=== PATIENT | female | born 1970 | race Caucasian/White ===

== ENCOUNTER 2025-03-02 18:10 | Emergency (ER) | payer OTHER, SELFPAY ==
[2025-03-02 18:16] VITALS: BP 125/81; PULSE 80; TEMP 36.4; O2SAT 97; BMI 32.1
[2025-03-02 18:38] VITALS: BP 128/88; PULSE 81; TEMP 36.7; O2SAT 97; BMI 32.1
--- NOTE | 2025-03-02 19:19 | ED.GENADUL1 ---
HPI HPI - General Adult General Chief complaint: Headache Stated complaint: MIGRAINE Time Seen by Provider: 03/02/25 18:18 Source: patient Mode of arrival: walk-in Limitations: no limitations History of Present Illness HPI narrative: 54 year old female presents to the ED for a headache, N/V. Onset was yesterday. States the pain is generalized, but worse on the left side. This is a typical migraine for her. She took her home medication without relief. Denies fever, chills, dizziness, vision changes. Denies neck pain/stiffness. States her daughter dropped her off today and will be picking her up. Related Data Allergies Allergy/AdvReac Type Severity Reaction Status Date / Time codeine Allergy Severe blacked out Verified 03/02/25 18:38 Opioid HPI Opioid Management Most Recent Opioid Data: Last Pain Scale 7 Today, 19:39 Last MAR Pain Assessment Today, 19:39 Review of Systems ROS Constitutional Denies: fever or chills Ears, nose, mouth, and throat Denies: neck pain Cardiovascular Denies: chest pain Respiratory Denies: shortness of breath Gastrointestinal Reports: nausea and vomiting; Denies: abdominal pain Musculoskeletal Denies: back pain or neck pain Integumentary/Breast Denies: rash Neurological Reports: headache; Denies: numbness in extremities, weakness in extremities or dizziness PFSH PFSH Social History Little interest or pleasure in doing things: not at all Feeling down, depressed, or hopeless: not at all Exam Constitutional Vital Signs, click to edit/add: Last Vital Signs Temp 98.1 F 03/02/25 18:38 Pulse 81 03/02/25 18:38 Resp 18 03/02/25 18:38 BP 128/88 03/02/25 18:38 Pulse Ox 97 03/02/25 18:38 O2 Del Method Room Air 03/02/25 18:38 Common normals: no apparent distress and oriented x3 General appearance: cooperative HENMT Common normals: external ears normal and moist oral mucous membranes Eye Common normals: PERRL, EOMs intact bilaterally, conjunctivae normal and no scleral icterus Neck & C-Spine Common normals: supple and no meningeal signs Chest Chest: symmetrical chest wall rise Respiratory Common normals: normal respiratory effort Effort & inspection: able to speak in complete sentences and symmetric chest movement Cardio Common normals: regular rate Neuro Common normals: oriented x3, CN's II-XII intact bilaterally, moves all extremities and no focal motor deficits Sensorium/orientation: awake and alert Speech: speech normal Gait (neuro): normal gait Course Vital Signs Vital signs: Vital Signs Temperature 97.5 F L 03/02/25 18:16 Pulse Rate 80 03/02/25 18:16 Respiratory Rate 16 03/02/25 18:16 Blood Pressure 125/81 03/02/25 18:16 Pulse Oximetry 97 03/02/25 18:16 Oxygen Delivery Method Room Air 03/02/25 18:16 Temperature 98.1 F 03/02/25 18:38 Pulse Rate 81 03/02/25 18:38 Respiratory Rate 18 03/02/25 18:38 Blood Pressure 128/88 03/02/25 18:38 Pulse Oximetry 97 03/02/25 18:38 Oxygen Delivery Method Room Air 03/02/25 18:38 Medical Decision Making MDM Narrative Medical decision making narrative: She was given IV fluid, Reglan, Decadron, Benadryl, and Toradol with improvement. She reported her pain 2/10 prior to discharge. Follow up with pcp for a recheck, further evaluation and treatment. She was discharged to family for a ride home. Medical Records Medical records reviewed: Yes I reviewed the patient's medical records Discharge Plan Discharge Chief Complaint: Headache Clinical Impression: Headache Patient Disposition: Home, Self-Care Time of Disposition Decision: 20:26 Condition: Good Mode of Transportation: Private Vehicle Print Language: Greenlandic Instructions: Acute Headache (ED) Additional Instructions: Return to the ED for worsening symptoms. Referrals: Physician,Non-Staff, MD [Primary Care Provider] - 1 week
[2025-03-02] MEDS: DIPHENHYDRAMINE HCL 50 MG/ML VIAL 25 MG IVP (19:38)
[2025-03-02] MEDS: DEXAMETHASONE SOD PHOS 10 MG/ML VIAL IV (19:38)
[2025-03-02] MEDS: 0.9 % SODIUM CHLORIDE 1,000 ML 999 ML IV (19:38)
[2025-03-02] MEDS: METOCLOPRAMIDE HCL 10 MG/2 ML VIAL IVP (19:39)
[2025-03-02] MEDS: KETOROLAC TROMETHAMINE 30 MG/ML VIAL IVP (19:39)
[2025-03-02 20:50] VITALS: BP 123/63; PULSE 84; O2SAT 98
== END 2025-03-02 20:53 | disposition home or self-care (01) ==
PROVIDERS: Emergency Provider Emergency Medicine
DX: R51.9 Headache, unspecified (principal); R11.2 Nausea with vomiting, unspecified
CPT/HCPCS: 96361; 96374; 96375; 99284; J1100; J1200; J1885; J2765

== ENCOUNTER 2025-03-04 11:23 | Emergency (ER) | payer OTHER, SELFPAY ==
[2025-03-04 11:27] VITALS: BP 153/84; PULSE 87; TEMP 36.6; O2SAT 95; BMI 32.1
--- OUTSIDE RECORDS SUMMARY | 2025-03-04 11:30 | XMS_ITS | Encounter Summary ---
Author Organization [employer] Address [id number] [address] [place] [address] Care Team Providers Care Sustainability Specialist Name Role Phone Dmitriy Shannon MD Primary Care Provider [phone] Encounter Details Date Type Department Care Team (Late st Contact Info) Description 10/20/2024 [facility]phone [facility] [address] [place] [address] Vita Laughlin CMA Social History Tobacco Use Types Packs/Day Years Used Date Smoking Tobacco: Some Days Cigarettes Smokeless Tobacco: Never Alcohol Use Standard Drinks/Week Comments Yes 0 (1 standard drink = 0.6 oz pur e alcohol) occassionally Social Connection and Isolation Panel [NHANES] A nswer Date Recorded In a typical week, how many times do you talk on the phone with family, friends, or neighbors? Once a week 03/21/2021 How often do you get together with friends or re latives? Once a week 03/21/2021 How often do you attend jew or jehovah's witness serv ices? Never 03/21/2021 Do you belong to any clubs o r organizations such as jew groups, unions, fraternal or athletic groups, or school groups? No 03/21/2021 How often do you attend meet ings of the clubs or organizations you belong to? Never 03/21/2021 Are you , , di vorced, , never , or living with a partner? 03/21/2021 AUDIT-C Answer Date Recorded Q1: How often do you have a drink containing alc ohol? Monthly or less 03/21/2021 Q2: How many drinks containi ng alcohol do you have on a typical day when you are drinking? 3 or 4 03/21/2021 Q3: How often do you have si x or more drinks on one occasion? Less than monthly 03/21/2021 Overall Financial Resource Strain (CARDIA) Answe r Date Recorded How hard is it for you to pa y for the very basics like food, housing, medical care, and heating? Not hard at all 03/21/2021 PHQ-2 Answer Date Recorded Total Score 0 05/10/2024 [facility] of Occupat ional Health - Occupational Stress Questionnaire Answer Date Recorded Do you feel stress - tense, restless, nervous, or anxious, or unable to sleep at night because your mind is troubled all the time - these days? Very much 03/21/2021 Exercise Vital Sign Answer Date Recorde d On average, how many days pe r week do you engage in moderate to strenuous exercise (like a brisk walk)? 3 days 03/21/2021 On average, how many minutes do you engage in exercise at this level? 30 min 03/21/2021 PRAPARE - Transportation Answer Date Re corded In the past 12 months, has l ack of transportation kept you from medical appointments or from getting medications? No 03/2021 In the past 12 months, has l ack of transportation kept you from meetings, work, or from getting things needed for daily living? No 03/21/2021 Childcare Answer Date Recorded Do problems getting child ca re make it difficult for you to work or study? No 03/21/2021 Employment Answer Date Recorded Do you need help finding a [facility] career center and/or a training program? No 03/21/2021 Hunger Screening Answer Date Recorded Within the past 12 months we worried whether our food would run out before we got money to buy more. Never True 05/10/2024 Within the past 12 months th e food we bought just didn't last and we didn't have money to get more. Never True 05/10/2024 Purpose - Life Answer Date Recorded I have a purpose and direction in my life. Agree 03/21/2021 Education Answer Date Recorded What is the highest level of school you have completed or the highest degree you have received? Associate degree: occupational, technical, or vocational program 03/21/2021 Comments No Sex and Gender Information Value Date Recorded Sex Assigned at Not on file Legal Sex Female 12:01 PM EDT Gender Identity Not on file Sexual Orientation Not on file documented as of this encounter Miscellaneous Notes * Telephone Encounter - Vita Laughlin CMA - 10/20/2024 9:22 AM EDT Patient on xanax for anxiety/ PTSD, would like referral to behavioral health. documented in this encounter Plan of Treatment Upcoming Encounters Date Type Department Care Team (Late st Contact Info) Description 05/18/2025 4:00 PM EST Office Visit [facility] [address] [place] [phone] Dmitriy Shannon MD [address] [place] [address] documented as of this encounter Visit Diagnoses Not on filedocumented in this encounter Additional Health Concerns Assessment Noted Time PHQ-9 Depression Total Score: 0 05/10/20 24 7:00 AM EDT A Body Mass Index follow-up plan has been documented for the patient 05/16/2019 12:28 PM EST documented as of this encounter Care Teams Sustainability Specialist Relationship Specialty Start Date End Date Dmitriy Shannon MD [address] [place] [address] PCP - General Internal Medicine 11/08/24 documented as of this encounter
--- OUTSIDE RECORDS SUMMARY | 2025-03-04 11:30 | XMS_ITS | Encounter Summary ---
Author Organization [employer] Address [facility] [id number] [address] [place] [address] Care Team Providers Care Field Assembly Supervisor Name Role Phone Dmitriy Shannon MD Primary Care Provider [phone] Reason for Visit * Reason Comments Med Refill Encounter Details Date Type Department Care Team (Late Contact Info) Description 06/07/2019 Refill [facility] [address] [place] [address] Sandee Garcia, [employer] FORMER [address] [place] [phone] Social History Tobacco Use Types Packs/Day Years Used Date Smoking Tobacco: Every Day Smokeless Tobacco: Never Alcohol Use Standard Drinks/Week Comments Yes 0 (1 standard drink = 0.6 oz pur e alcohol) PHQ-2 Answer Date Recorded PHQ-2 Score 6 06/01/2019 Childcare Answer Date Recorded Childcare Unknown 12/22/2018 Employment Answer Date Recorded Employment Unknown 12/22/2018 Comments No Sex and Gender Information Value Date Recorded Sex Assigned at Not on file Legal Sex Female 12:01 PM EDT Gender Identity Not on file Sexual Orientation Not on file documented as of this encounter Plan of Treatment Upcoming Encounters Date Type Department Care Team ([facility] Contact Info) Description 05/18/2025 4:00 PM EST Office Visit [facility] [address] [place] [address] Dmitriy Shannon MD [address] [place] [address] documented as of this encounter Visit Diagnoses Not on filedocumented in this encounter Additional Health Concerns Infection Onset Date Last Indicated Resolved Time COVID-19 Rule-Out 07/03/2020 06/22/2020 07/03/2020 12:53 PM EST Assessment Noted Time PHQ-9 Depression Total Score: 6 06/01/20 19 10:00 AM EST A Body Mass Index follow-up plan has been documented for the patient 05/16/2019 12:28 PM EST documented as of this encounter Care Teams Field Assembly Supervisor Relationship Specialty Start Date End Date Dmitriy Shannon MD [address] [place] [address] [phone] PCP - General Internal Medicine 11/08/24 documented as of this encounter
--- OUTSIDE RECORDS SUMMARY | 2025-03-04 11:30 | XMS_ITS | Encounter Summary ---
Author Organization [employer] [facility] tem Address [id number] [address] [place] [address] Care Team Providers Care Office Aide Name Role Phone Dmitriy Shannon MD Primary Care Provider [phone] Reason for Visit * Reason Onset Date Comments Fall 03/03/2025 Encounter Details Date Type Department Care Team (Late st Contact Info) Description 03/03/2025 Nurse Triage [facility] [address] [place] [phone] Claudia Boggs, KASANDRA Social History Tobacco Use Types Packs/Day Years Used Date Smoking Tobacco: Former Cigarettes Smokeless Tobacco: Never Alcohol Use Standard [...] week 03/21/2021 How often do you attend restorationist or judaism serv ices? Never 03/21/2021 Do you belong to any clubs o r organizations such as restorationist groups, unions, fraternal or athletic groups, or [...] PHQ-2 Answer Date Recorded Total Score 0 11/30/2024 [facility] of Occupat ional Health - Occupational Stress [...] Recorded Do you need help finding a [facility] career [facility] and/or a training program? No 03/21/2021 Hunger Screening Answer Date Recorded Within the past 12 months we worried whether our food would run out before we got money to buy more. Never True 11/30/2024 Within the past 12 months th e food we bought just didn't last and we didn't have money to get more. Never True 11/30/2024 Purpose - Life Answer Date Recorded I [...] encounter Miscellaneous Notes * Telephone Encounter - Claudia Boggs RN - 03/03/2025 3:30 PM EDT Contract: 145 Calling fell down 4 stairs on bottom. Earlier today 0730 today thinks she broke her tailbone. Trouble sitting down lots of discomfort. Wanting an x ray. Reason for Disposition [1] Caller has URGENT question AND [2] triager unable to answer question Protocols used: Falls and [id number] * Telephone Encounter - Claudia Boggs RN - 03/03/2025 3:30 PM EDT left for Dmitriy Shannon MD to call [facility] * Telephone Encounter - Claudia Boggs RN - 03/03/2025 3:[address] Shannon who recommended pt go to ER for evaluation and treatment. * Telephone Encounter - Claudia Boggs RN - 03/03/2025 3:30 PM EDT Notified pt of doctors suggestions. documented in this encounter Plan of Treatment Upcoming Encounters Date Type Department Care Team (Late st Contact Info) Description 05/18/2025 4:00 PM EST Office Visit [facility] [address] [place] [phone] Dmitriy Shannon MD [address] [place] [address] documented as of this encounter Visit Diagnoses Not on filedocumented in this encounter Additional Health Concerns Assessment Noted Time PHQ-9 Depression Total Score: 0 12/01/19 11:36 AM EDT A Body Mass Index follow-up plan has been documented for the patient 11/30/2024 11:57 AM EDT documented as of this encounter Care Teams Office Aide Relationship Specialty [place] [address] [place] [address] PCP - General Internal Medicine 11/08/24 documented as of this encounter
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
--- OUTSIDE RECORDS SUMMARY | 2025-03-04 11:30 | XMS_ITS | Encounter Summary ---
Author Organization [employer] Address [id number] [address] [place] [address] Care Team Providers Care Senior Electrical Engineer Name Role Phone Dmitriy Shannon MD Primary Care Provider [phone] Reason for Visit * Reason Onset Date Comments Med Refill 10/07/2024 Encounter Details Date Type Department Care Team (Late st Contact Info) Description 10/07/2024 Refill [facility] [address] [place] [phone] Garfield Mckinney MD [address]. Provider retired 10/11/24 [place], [place] [phone] Anxiety Social History Tobacco Use Types Packs/Day Years [...] week 03/21/2021 How often do you attend sabianism or congregation serv ices? Never 03/21/2021 Do you belong to any clubs o r organizations such as sabianism groups, unions, fraternal or athletic groups, or [...] Answer Date Recorded Total Score 0 05/10/2024 [facility] of Occupat ional Health - Occupational Stress [...] Recorded Do you need help finding a [employer] tehachapial career center and/or a training program? No [...] EST Office Visit [facility] [address] [place] [phone] Dmitriy Shannon MD [address] [place], [place] [phone] documented as of this encounter Visit Diagnoses Diagnosis Anxiety Anxiety state, unspecified documented in this encounter Additional Health Concerns Assessment Noted Time PHQ-9 Depression Total Score: 0 05/10/20 24 7:00 AM EDT A Body Mass Index follow-up plan has been documented for the patient 05/16/2019 12:28 PM EST documented as of this encounter Care Teams Senior Electrical Engineer Relationship Specialty Start Date End Date Dmitriy Shannon MD [address] [place] [address] PCP - General Internal Medicine 11/08/24 documented as of this encounter
--- OUTSIDE RECORDS SUMMARY | 2025-03-04 11:30 | XMS_ITS | Encounter Summary ---
Author Organization [employer] Address [id number] [address] [place] [address] Care Team Providers Care Aerospace Products Sales Engineer Name Role Phone Dmitriy Shannon MD Primary Care Provider [phone] Reason for Visit * Reason Onset Date Comments Med Refill 03/29/2021 Encounter Details Date Type Department Care Team (Late st Contact Info) Description 03/29/2021 Refill [facility] [address] [place] [phone] Ebony Vines LPN Social History Tobacco Use [...] week 03/21/2021 How often do you attend evangelical or pentecostalism serv ices? Never 03/21/2021 Do you belong to any clubs o r organizations such as evangelical groups, unions, fraternal or athletic groups, or [...] 03/21/2021 PHQ-2 Answer Date Recorded Total Score 7 03/21/2021 [facility] of Occupat ional Health - Occupational Stress [...] Recorded Do you need help finding a l ocal career center and/or a training program? No 03/21/2021 Purpose - Life Answer Date Recorded I [...] EST Office Visit [facility] [address] [place] [phone] Dmitriy Shannon MD [address] [place] [phone] documented as of this encounter Visit Diagnoses Not on filedocumented in this encounter Additional Health Concerns Assessment Noted Time PHQ-9 Depression Total Score: 7 03/21/20 21 9:32 AM EDT A Body Mass Index follow-up plan has been documented for the patient 05/16/2019 12:28 PM EST documented as of this encounter Care Teams Aerospace Products Sales Engineer Relationship Specialty Start Date End Date Dmitriy Shannon MD [address] [place] [address] PCP - General Internal Medicine 11/08/24 documented as of this encounter
--- OUTSIDE RECORDS SUMMARY | 2025-03-04 11:30 | XMS_ITS | Encounter Summary ---
Author Organization [facility] Healthcare Address [address] [facility] [place] [address] Care Team Providers Care Air Pumper Name Role Phone Randi Gardner MD Primary Care Provider [phone] Encounter Details Date Type Department Care Team (Late st Contact Info) Description 02/15/2023 Abstract [facility] [place] [facility] [address] [facility] [place] [address] Randi Gardner MD [address] [place] [address] Social History Tobacco Use Types Packs/Day Years Used Date Smoking Tobacco: Every Day Cigarettes 0.5 39.6 Started: 07/13/1985 Tobacco Cessation:Ready to Q uit: Not Asked; Counseling Given: Not Answered Alcohol Use Standard Drinks/Week Comments Not Currently 0 (1 standard drink = 0.6 oz pur e alcohol) alcohol: monthly or less Comments Unknown Sex and Gender Information Value Date Recorded Sex Assigned at Not on file Legal Sex Female 7:26 PM EDT Gender Identity Not on file Sexual Orientation Not on file documented as of this encounter Plan of Treatment Not on file documented as of this encounter Visit Diagnoses Not on filedocumented in this encounter Care Teams Air Pumper Relationship Specialty Start Date End Date Randi Gardner MD [address] [facility] [place] [address] PCP - General Family Medicine 02/04/23 documented as of this encounter
--- OUTSIDE RECORDS SUMMARY | 2025-03-04 11:30 | XMS_ITS | Encounter Summary ---
Author Organization [facility] Address [id number] [address] [place] [address] Care Team Providers Care Mail Distributor Name Role Phone Dmitriy Shannon MD Primary Care Provider Reason for Visit * Reason Onset Date Comments Med Refill 04/10/2023 Encounter Details Date Type Department Care Team (Late st Contact Info) Description 04/10/2023 Refill [facility] [address] [phone] Ebony Vines LPN Anxiety Social History Tobacco Use Types Packs/Day Years Used Date Smoking Tobacco: Every Day Cigarettes Smokeless Tobacco: Never Alcohol Use Standard [...] week 03/21/2021 How often do you attend presybeterian or sikh serv ices? Never 03/21/2021 Do you belong to any clubs o r organizations such as presybeterian groups, unions, fraternal or athletic groups, or [...] PHQ-2 Answer Date Recorded Total Score 0 03/13/2023 [facility] [place] of Occupat ional Health - Occupational Stress [...] encounter Miscellaneous Notes * Telephone Encounter - Ebony Vines LPN - 04/10/2023 9:22 AM EDT Patient requesting ref[facility] Xanax [facility] documented in this encounter Plan of Treatment Upcoming Encounters Date Type Department Care Team (Late st Contact Info) Description 05/18/2025 4:00 PM EST Office Visit [facility] [address] [place] [phone] Dmitriy Shannon MD [address] [place] [address] documented as of this encounter Visit Diagnoses Diagnosis Anxiety Anxiety state, unspecified documented in this encounter Additional Health Concerns Assessment Noted Time PHQ-9 Depression Total Score: 0 03/13/20 7:00 AM EDT A Body Mass Index follow-up plan has been documented for the patient 05/16/2019 12:28 PM EST documented as of this encounter Care Teams Mail Distributor Relationship Specialty Start Date End Date Dmitriy Shannon MD [address] [place] [address] PCP - General Internal Medicine 11/08/24 documented as of this encounter
--- OUTSIDE RECORDS SUMMARY | 2025-03-04 11:30 | XMS_ITS | Encounter Summary ---
Author Organization [employer] Sys tem Address [id number] [address] [place] [address] Care Team Providers Care Wood And Wood Products Labourer Name Role Phone Dmitriy Shannon MD Primary Care Provider [phone] Reason for Visit * Reason Onset Date Comments Med Refill 06/02/2022 Encounter Details Date Type Department Care Team (Late st Contact Info) Description 06/02/2022 Refill [facility] [address] [place] [phone] Garfield Mckinney MD [address]. Provider retired 10/11/24 [place], [place] [phone] Social History Tobacco Use Types Packs/Day Years [...] week 03/21/2021 How often do you attend yazdanism or restoration serv ices? Never 03/21/2021 Do you belong to any clubs o r organizations such as yazdanism groups, unions, fraternal or athletic groups, or [...] PHQ-2 Answer Date Recorded Total Score 0 03/12/2022 [facility] [place] of Occupat ional Health - Occupational Stress [...] Recorded Do you need help finding a [facility] and/or a training program? No [...] Telephone Encounter - Vita Laughlin CMA - 06/02/2022 10:57 AM EST Left message for patient to contact [facility] for refill patient should have refills left documented in this encounter Plan of Treatment Upcoming Encounters Date Type Department Care Team (Late st Contact Info) Description 05/18/2025 4:00 PM EST Office Visit [facility] [address] [place] [phone] Dmitriy Shannon MD [address] [place] [address] [phone] documented as of this encounter Visit Diagnoses Not on filedocumented in this encounter Additional Health Concerns Assessment Noted Time PHQ-9 Depression Total Score: 0 03/12/20 22 10:00 AM EDT A Body Mass Index follow-up plan has been documented for the patient 05/16/2019 12:28 PM EST documented as of this encounter Care Teams [employer] Labourer Relationship Specialty Start Date End Date Dmitriy Shannon MD [address] [place] [address] PCP - General Internal Medicine 11/08/24 documented as of this encounter
--- OUTSIDE RECORDS SUMMARY | 2025-03-04 11:30 | XMS_ITS | Encounter Summary ---
Author Organization [employer] s tem Address [id number] [address] [place] [address] Care Team Providers Care Public Address Technician Name Role Phone Dmitriy Shannon MD Primary Care Provider [phone] Encounter Details Date Type Department Care Team (Late Contact Info) Description 04/17/2017 Telephone [facility] [address] [place] [phone] Ebony Vines LPN Social History Tobacco Use Types Packs/Day Years Used Date Smoking Tobacco: Never Assessed Comments Unknown Sex and Gender Information Value Date Recorded Sex Assigned at Not on file Legal Sex Female 12:01 PM EDT Gender Identity Not on file Sexual Orientation Not on file documented as of this encounter Plan of Treatment Upcoming Encounters Date Type Department Care Team (Late Contact Info) Description 05/18/2025 4:00 PM EST Office Visit [facility] [address] [place] [address] Dmitriy Shannon MD [address] [place] [address] [phone] documented as of this encounter Visit Diagnoses Not on filedocumented in this encounter Additional Health Concerns Infection Onset Date Last Indicated Resolved Time COVID-19 Rule-Out 07/03/2020 06/22/2020 07/03/2020 12:53 PM EST documented as of this encounter Care Teams Public Address Technician Relationship Specialty Start Date End Date Dmitriy Shannon MD [address] [place] [address] PCP - General Internal Medicine 11/08/24 documented as of this encounter
--- OUTSIDE RECORDS SUMMARY | 2025-03-04 11:30 | XMS_ITS | Encounter Summary ---
Author Organization [employer] Sys [employer] Address [id number] [address] [place] [address] Care Team Providers Care Cd Technician Name Role Phone Dmitriy Shannon MD Primary Care Provider [phone] Encounter Details Date Type Department Care Team (Late st Contact Info) Description 04/16/2021 [facility]phone [facility] [address] [place] [address] Ebony Vines LPN Social History Tobacco [...] week 03/21/2021 How often do you attend yazidism or pentecostalism serv ices? Never 03/21/2021 Do you belong to any clubs o r organizations such as yazidism groups, unions, fraternal or athletic groups, or [...] Answer Date Recorded Total Score 7 03/21/2021 [facility] of Occupat ional Health - Occupational [...] Recorded Do you need help finding a [facility] career center and/or a training program? No [...] EST Office Visit [facility] [address] [place] [phone] Dmitriy Shannon MD [address] [place] [address] [phone] documented as of this encounter Visit Diagnoses Not on filedocumented in this encounter Additional Health Concerns Assessment Noted Time PHQ-9 Depression Total Score: 7 03/21/20 21 9:32 AM EDT A Body Mass Index follow-up plan has been documented for the patient 05/16/2019 12:28 PM EST documented as of this encounter Care Teams Cd Technician Relationship Specialty [place] [address] [place] [address] PCP - General Internal Medicine 11/08/24 documented as of this encounter
--- OUTSIDE RECORDS SUMMARY | 2025-03-04 11:30 | XMS_ITS | Encounter Summary ---
Author Organization [facility] Address [address] [place] [address] Care Team Providers Care Fish Rod Maker Name Role Phone Randi Gardner MD Primary Care Provider [phone] Encounter Details Date Type Department Care Team (Late st Contact Info) Description 02/19/2023 Abstract [facility] [address] [facility] [place] [phone] Yuval Espino, DPM [address] [place], [place] [phone] Social History Tobacco Use Types Packs/Day Years Used Date Smoking Tobacco: Every Day Cigarettes 0.5 39.6 Started: 07/13/1985 Alcohol Use Standard Drinks/Week Comments Not Currently [...] on filedocumented in this encounter Care Teams Fish Rod Maker Relationship Specialty Start Date End Date Randi Gardner MD [address] [place], [place] [phone] PCP - General Family Medicine 02/04/23 documented as of this encounter
--- OUTSIDE RECORDS SUMMARY | 2025-03-04 11:30 | XMS_ITS | Encounter Summary ---
Author Organization [employer] Sys tem Address [id number] [address] [place] [address] Care Team Providers Care Helper Coordinator Name Role Phone Dmitriy Shannon MD Primary Care Provider [phone] Encounter Details Date Type Department Care Team (Late st Contact Info) Description 05/05/2022 Orders Only [facility] [address] [place] [address] Garfield Mckinney MD [address]. Provider retired 10/11/24 [place], [place] [phone] Social History Tobacco Use Types Packs/Day Years [...] week 03/21/2021 How often do you attend sikh or muslim serv ices? Never 03/21/2021 Do you belong to any clubs o r organizations such as sikh groups, unions, fraternal or athletic groups, or [...] Answer Date Recorded Total Score 0 03/12/2022 [facility] [place] of Occupat ional Health - Occupational Stress [...] Office Visit [facility] [address] [place] [address] [place] [address] [place] [address] documented as of this encounter Visit Diagnoses Not on filedocumented in this encounter Additional Health Concerns Assessment Noted Time PHQ-9 Depression Total Score: 0 03/12/20 22 10:00 AM EDT A Body Mass Index follow-up plan has been documented for the patient 05/16/2019 12:28 PM EST documented as of this encounter Care Teams Helper Coordinator Relationship Specialty Start Date End Date Dmitriy Shannon MD [address] [place] [address] PCP - General Internal Medicine 11/08/24 documented as of this encounter
--- OUTSIDE RECORDS SUMMARY | 2025-03-04 11:30 | XMS_ITS | Encounter Summary ---
Author Organization [employer] tem Address [id number] [address] [place] [address] Care Team Providers Care Front Desk Name Role Phone Dmitriy Shannon MD Primary Care Provider [phone] Encounter Details Date Type Department Care Team (Late st Contact Info) Description 06/25/2022 Telephone [facility] [address] [place] [address] Garfield Mckinney MD [address]. Provider retired 10/11/24 [place], [place] [phone] Social History Tobacco Use Types Packs/Day Years [...] week 03/21/2021 How often do you attend advent or sabianism serv ices? Never 03/21/2021 Do you belong to any clubs o r organizations such as advent groups, unions, fraternal or athletic groups, or [...] Answer Date Recorded Total Score 0 03/12/2022 [facility] [place] of Occupat ional Health - Occupational Stress [...] on file Sexual Orientation Not on file COVID-19 Exposure Response Date Recorded In the last month, have you been in contact with someone who was confirmed or suspected to have Coronavirus / COVID-19? No / Unsure 06/23/2022 8:51 AM EST documented as of this encounter Miscellaneous Notes * Telephone Encounter - Garfield Mckinney MD - 06/25/2022 5:00 PM EST ----- Message from Ebony Vines LPN sent at 06/25/2022 9:24 AM EST ----- Patient notified of test results and verbalizes understanding. She is agreeable to increasing Levothyroxine, please send new Rx to [facility]. She wishes to hold off on statin drug at this time, will try a low fat diet and recheck labs in August. * Telephone Encounter - Garfield Mckinney MD - 06/25/2022 5:00 PM EST done documented in this encounter Plan of Treatment Upcoming Encounters Date Type Department Care Team (Late st Contact Info) Description 05/18/2025 4:00 PM EST Office Visit [facility] [address] [place] [phone] Dmitriy Shannon MD [address] [place] [address] documented as of this encounter Visit Diagnoses Not on filedocumented in this encounter Additional Health Concerns Assessment Noted Time PHQ-9 Depression Total Score: 0 03/12/20 22 10:00 AM EDT A Body Mass Index follow-up plan has been documented for the patient 05/16/2019 12:28 PM EST documented as of this encounter Care Teams Front Desk Relationship Specialty Start Date End Date Dmitriy Shannon MD [address] [place] [address] PCP - General Internal Medicine 11/08/24 documented as of this encounter
--- OUTSIDE RECORDS SUMMARY | 2025-03-04 11:30 | XMS_ITS | Encounter Summary ---
Author Organization [employer] tem Address [facility]-[id number] [address] [place] [address] Care Team Providers Care Manager Placement Name Role Phone Dmitriy Shannon MD Primary Care Provider [phone] Reason for Visit * Reason Comments Med Refill Encounter Details Date Type Department Care Team ([facility] Contact Info) Description 10/22/2018 Refill [facility] [address] [place] [address] [place] [address] Garfield Mckinney MD [address] [place] [address]. Provider retired 10/11/24 [place] [address] Social History Tobacco Use Types Packs/Day Years Used Date Smoking Tobacco: Every Day Smokeless Tobacco: Never Alcohol Use Standard Drinks/Week Comments Yes 0 (1 standard drink = 0.6 oz pur e alcohol) PHQ-2 Answer Date Recorded PHQ-2 Score 0 07/23/2018 Childcare Answer Date Recorded Childcare Unknown 10/06/2018 Employment Answer Date Recorded Employment Unknown 10/06/2018 Comments No Sex and Gender Information Value Date Recorded Sex Assigned at Not on file Legal Sex Female 12:01 PM EDT Gender Identity Not on file Sexual Orientation Not on file documented as of this encounter Plan of Treatment Upcoming Encounters Date Type Department Care Team ([facility] Contact Info) Description 05/18/2025 4:00 PM EST Office Visit [facility] [place] [address] Dmitriy Shannon MD [address] [place] [address] documented as of this encounter Visit Diagnoses Not on filedocumented in this encounter Additional Health Concerns Infection Onset Date Last Indicated Resolved Time COVID-19 Rule-Out 07/03/2020 06/22/2020 07/03/2020 12:53 PM EST Assessment Noted Time PHQ-9 Depression Total Score: 0 02/24/20 18 3:00 PM EDT A Body Mass Index follow-up plan has been documented for the patient 02/23/2018 4:03 PM EDT documented as of this encounter Care Teams Manager Placement Relationship Specialty [place] [address] [place] [address] PCP - General Internal Medicine 11/08/24 documented as of this encounter
--- OUTSIDE RECORDS SUMMARY | 2025-03-04 11:30 | XMS_ITS | Encounter Summary ---
Author Organization [employer] Sys [employer] Address [id number] [address] [place] [address] Care Team Providers Care Cigarette Filter Inspector Name Role Phone Dmitriy Shannon MD Primary Care Provider [phone] Reason for Visit * Reason Onset Date Comments Med Refill 07/11/2021 Encounter Details Date Type Department Care Team (Late st Contact Info) Description 07/11/2021 Refill [facility] [address] [place] [phone] Garfield Mckinney MD [address]. Provider retired 10/11/24 [place], [place] [phone] Anxiety Social History Tobacco Use Types Packs/Day [...] week 03/21/2021 How often do you attend muslim or episcopalian serv ices? Never 03/21/2021 Do you belong to any clubs o r organizations such as muslim groups, unions, fraternal or athletic groups, or [...] Answer Date Recorded Total Score 7 03/21/2021 [facility] [place] of Occupat ional Health - Occupational Stress [...] Recorded Do you need help finding a [employer] career center and/or a training program? [...] EST Office Visit [facility] [address] [place] [phone] Dmitriy Shannon MD [address] [place] [phone] documented as of this encounter Visit Diagnoses Diagnosis Anxiety Anxiety state, unspecified documented in this encounter Additional Health Concerns Assessment Noted Time PHQ-9 Depression Total Score: 7 03/21/20 21 9:32 AM EDT A Body Mass Index follow-up plan has been documented for the patient 05/16/2019 12:28 PM EST documented as of this encounter Care Teams Cigarette Filter Inspector Relationship Specialty Start Date End Date Dmitriy Shannon MD [address] [place] [address] [phone] PCP - General Internal Medicine 11/08/24 documented as of this encounter
--- OUTSIDE RECORDS SUMMARY | 2025-03-04 11:30 | XMS_ITS | Encounter Summary ---
Author Organization [employer] Sys [employer] Address [facility]-[id number] [address] [place] [address] Care Team Providers Care Dispatcher Radioactive Waste Disposal Name Role Phone Dmitriy Shannon MD Primary Care Provider [phone] Reason for Visit * Reason Onset Date Comments Med Refill 06/11/2023 Encounter Details Date Type Department Care Team (Late st Contact Info) Description 06/11/2023 Refill [facility] [address] [place] [phone] Garfield Mckinney MD [address]. Provider retired 10/11/24 [place], [place] [phone] Anxiety Social History Tobacco Use Types Packs/Day [...] week 03/21/2021 How often do you attend methodist or mandaen serv ices? Never 03/21/2021 Do you belong to any clubs o r organizations such as methodist groups, unions, fraternal or athletic groups, or [...] Answer Date Recorded Total Score 0 03/13/2023 [facility] of Occupat ional Health - Occupational [...] Recorded Do you need help finding a [facility] career center and/or a training program? No 03/21/2021 Hunger Screening Answer Date Recorded Within the past 12 months we worried whether our food would run out before we got money to buy more. Never True 05/29/2023 Within the past 12 months th e food we bought just didn't last and we didn't have money to get more. Never True 05/29/2023 Purpose - Life Answer Date Recorded I [...] Telephone Encounter - Ebony Vines LPN - 06/11/2023 10:10 AM EST Patient via MyChart requesting refill of Alprazolam [facility] documented in this encounter Plan of Treatment Upcoming Encounters Date Type Department Care Team (Late st Contact Info) Description 05/18/2025 4:00 PM EST Office Visit [facility] [address] [place] [phone] Dmitriy Shannon MD [address] [place] [address] documented as of this encounter Visit Diagnoses Diagnosis Anxiety Anxiety state, unspecified documented in this encounter Additional Health Concerns Assessment Noted Time PHQ-9 Depression Total Score: 0 03/13/20 23 7:00 AM EDT A Body Mass Index follow-up plan has been documented for the patient 05/16/2019 12:28 PM EST documented as of this encounter Care Teams Dispatcher Radioactive Waste Disposal Relationship Specialty Start Date End Date Dmitriy Shannon MD [address] [place], [place] [phone] PCP - General Internal Medicine 11/08/24 documented as of this encounter
--- OUTSIDE RECORDS SUMMARY | 2025-03-04 11:30 | XMS_ITS | Encounter Summary ---
Author Organization [email or web address] Sys [employer] Address [facility] [place]-[id number] [address] [place] [address] Care Team Providers Care Respiratory Physician Name Role Phone Dmitriy Shannon MD Primary Care Provider [phone] Reason for Visit * Reason Onset Date Comments Med Refill 02/28/2025 Encounter Details Date Type Department Care Team (Late st Contact Info) Description 02/28/2025 Refill [facility] [address] [place] [phone] Garfield Mckinney MD [address]. Provider retired 10/11/24 [place], [place] [phone] Social History Tobacco Use Types Packs/Day Years [...] week 03/21/2021 How often do you attend protestant or adventism serv ices? Never 03/21/2021 Do you belong to any clubs o r organizations such as protestant groups, unions, fraternal or athletic groups, or [...] Answer Date Recorded Total Score 0 11/30/2024 [facility] of Occupat ional Health - Occupational [...] Do you need help finding a [facility] career center and/or a training [...] EST Office Visit [facility] [address] [place] [phone] Dmitriy Shanonn MD [address] [place] [address] [phone] documented as of this encounter Visit Diagnoses Not on filedocumented in this encounter Additional Health Concerns Assessment Noted Time PHQ-9 Depression Total Score: 0 12/01/19 11:36 AM EDT A Body Mass Index follow-up plan has been documented for the patient 11/30/2024 11:57 AM EDT documented as of this encounter Care Teams Respiratory Physician Relationship Specialty Start Date End Date Dmitriy Shannon MD [address] [place] [address] PCP - General Internal Medicine 11/08/24 documented as of this encounter
--- OUTSIDE RECORDS SUMMARY | 2025-03-04 11:30 | XMS_ITS | Clinical Summary ---
Author Organization [employer]ified Identity Pass tem Address [id number] [address] [place] [address] Care Team Providers Care Director Of Education Name Role Phone Dmitriy Shannon MD Primary Care Provider [phone] Allergies Active Allergy Reactions Criticality Noted Date Comments Codeine Syncope 08/10/2021 Contact Metal Agent Rash Medium 08/22/2022 Medications ibuprofen (MOTRIN) 800 mg tablet Take 1 tablet (800 mg total) by mouth every 6 (six) hours as needed for pain. 120 tablet 5 4 Active levothyroxine (SYNTHROID, LEVOTHROID) 100 MCG tablet Take 1 tablet (100 mcg total) by mouth in the morning. 90 tablet 3 4 Active sertraline (ZOLOFT) 50 mg tabletIndications :Anxiety Take 1 tablet (50 mg total) by mouth in the morning. 90 tablet 3 5 Active ALPRAZolam (XANAX) 1 mg tabletIndications :Anxiety Take 1 tablet (1 mg total) by mouth nightly as needed for anxiety. TAKE 1 TABLET BY MOUTH EVERY EVENING NEEDED FOR SLEEP 20 tablet 5 Active cyclobenzaprine (FLEXERIL) 5 mg tablet Take 1 tablet (5 mg total) by mouth nightly. 30 tablet 5 Active SUMAtriptan (IMITREX) 100 mg tablet DOSAGE MAY BE REPEATED IN 2 HOURS IF HEADACHE NOT IMPROVED OR RECURS. MAXIMUM IS 200 MG DAILY 30 tablet 5 5 Active lidocaine (LIDODERM) 5 % Place 1 patch on the skin daily. Remove & Discard patch within 12 hours or as directed by 30 patch 5 Active hydroCHLOROthiazi de (MICROZIDE) 12.5 mg capsuleIndication s:Primary hypertension TAKE 1 CAPSULE BY MOUTH EVERY DAY 90 capsule 5 Active fluticasone propionate (FLONASE) 50 mcg/actuation nasal spray SPRAY 2 SPRAYS INTO EACH NOSTRIL IN THE MORNING 48 mL 5 Active busPIRone (BUSPAR) 15 mg tablet TAKE 1 TABLET (15 MG TOTAL) BY MOUTH IN THE MORNING AND BEFORE BEDTIME 180 tablet 5 Active sertraline (ZOLOFT) 100 mg tabletIndications :Anxiety TAKE 1 TABLET (100 MG TOTAL) BY MOUTH IN THE MORNING 90 tablet 5 Active loratadine (CLARITIN) 10 mg tablet TAKE 1 TABLET (10 MG TOTAL) BY MOUTH IN THE MORNING 90 tablet 5 Active Active Problems Problem Noted Date Diagnosed Date Primary hypertension 07/08/2024 Crushing injury of right foot and toe 04/10/2021 Acquired hypothyroidism 08/05/2017 Anxiety and depression 08/05/2017 Encounters Date Type Department Care Team Description 03/03/2025 Nurse Triage [facility] [address] [place] [address] Claudia Boggs RN 02/28/2025 Refill [facility] [place] [phone] Garfield Mckinney MD 02/07/2025 Travel 01/16/2025 Refill [facility] [place] [phone] Sandee Garcia, LATA-STAFF OCCUPATIONAL THERAPIST 01/11/2025 Refill [facility] [place] [phone] Dmitriy Shannon MD Anxiety 01/05/2025 Refill [facility] [place] [address] Garfield Mckinney MD Primary hypertension; Anxiety 01/02/2025 Refill [facility] [place] [phone] Sandee Garcia APRN-STAFF OCCUPATIONAL THERAPIST 01/02/2025 Refill [facility] [address] [place] [phone] Garfield Mckinney MD 12/21/2024 Refill [facility] [place] [phone] Sandee Garcia, LATA-TOM 12/12/2024 Refill [facility] [place] [phone] Ashly Crawley LPN Anxiety from Last 3 Months Immunizations Immunization Administration Dates Next Due COVID-19, mRNA, LNP-S, PF, 30mcg/0.3mL Dose 03/13 Hep B, Adolescent or Pediatric 10/18/2009 Hepatitis B 05/06/2010,03/06/2010 Influenza LAIV (Nasal) 05/01/2014 Influenza, Im Flucelvax (Pf) 05/04/2019 Influenza, Injectable, quadrivalent (PF) 021 Tdap 03/08/2015,11/25/2011 Family History Medical History Relation Name Comments Cancer Father Diabetes Father Heart disease Father Hyperlipidemia Father Hypertension Father Lung cancer Father Diabetes Mother Heart disease Mother Relation Name Status Comments Father Alive Mother Social History Tobacco Use Types Packs/Day Years [...] week 03/21/2021 How often do you attend jain or jewish serv ices? Never 03/21/2021 Do you belong to any clubs o r organizations such as jain groups, unions, fraternal or athletic groups, or [...] Answer Date Recorded Total Score 0 11/30/2024 [facility] Occupat ional Health - [...] Recorded Do you need help finding a [employer] al career center and/or a training program? No [...] on file Sexual Orientation Not on file Last Filed Vital Signs Vital Sign Reading Time Taken Comments Blood Pressure 132/82 11/30/2024 11:32 AM EDT Pulse 69 11/30/2024 11:32 AM EDT Temperature 36.4 C (97.5 F) 05/10/2024 1:40 PM EDT Respiratory Rate 18 11/30/2024 11:32 AM EDT Oxygen Saturation 95% 11/30/2024 11:32 AM EDT Inhaled Oxygen Concentration - - Weight 75.8 kg (167 lb) 11/30/2024 11:32 AM EDT Height 157.5 cm (5' 2 ) 05/30/2024 9:47 AM EST Body Mass Index 30.54 05/30/2024 9:47 AM EST Plan of Treatment Upcoming Encounters Date Type Department Care Team (Late st Contact Info) Description 05/18/2025 4:00 PM EST Office Visit [facility] [address] [place] [phone] Dmitriy Shannon MD [address] [place] [address] Health Maintenance Due Date Last Done Comments Zoster (Shingles) Vaccine (1 of 2) 2021 COVID-19 Vaccine (3 - 2023-2 5 season) 2024 04/19/2021, 03/27/2021 DTaP,Tdap and Td Vaccines (3 - Td or Tdap) 03/08/2025 03/08/2015, 11/25/2011 Influenza Vaccine 03/13/2025 03/27/2021, , 05/01/2014 Mammogram 05/30/2025 05/30/2024, 09/11, 05/27/2019, Additional history exists Pap Smear 09/23/2025 09/23/2022, 09/10, 09/23/2022 Adult BMI Follow Up Plan 11/30/2025 11/30/2024 Adult BMI Screening 11/30/2025 11/30/2024 Depression Screening 11/30/2025 11/30/2024 Tobacco Screening 11/30/2025 11/30/2024 Medical Devices Not on file Procedures Procedure Name Priority Date/Time Associated Diagnosis Comments MAMM SCREENING BILATERAL W CAD Routine 05/30/2024 10:01 AM EST Encounter for screening mammogram for malignant neoplasm of breast HIGH RISK HPV W/MAYANK Routine 09/23/2022 6:35 AM EDT Screening for cervical cancer Lesion of cervix from Last 3 Months or Most Recently Relevant to Health Maintenance Results * Mammography screening bilateral with CAD (05/30/2024 10:01 AM EST) Anatomical Region Laterality Modality Breast Bilateral Mammography 05/31/2024 9:27 AM EST Narrative 05/31/2024 9:31 AM EST ARY HARDEN 1970 [id number] EXAM: MAMM SCREENING BILATERAL W CAD, 05/30/2024 9:45 AM CLINICAL INDICATIONS: Screening, Encounter for screening mammogram for malignant neoplasm of breast COMPARISON: 09/29/2022 TECHNIQUE: Bilateral digital tomosynthesis MLO and CC views of the breasts were obtained, with creation of synthetic 2D views. Computer aided detection was utilized. FINDINGS: There are scattered areas of fibroglandular density. There are no suspicious masses, calcifications, or areas of architectural distortion. IMPRESSION: No mammographic evidence of malignancy. BI-RADS: BI-RADS 1 - Negative RECOMMENDATION: Routine screening mammogram in 1 year. RISK ASSESSMENT: TC Lifetime risk: 6.41%. The patient's reported personal and family medical history was used calculate their Tyrer-Cuzick lifetime risk of malignancy. Scores less than 20% are not considered high risk per ACR guidelines and patient should continue with the above recommendation. Finalized by Garfield Robins MD on 05/31/2024 9:31 AM 1 b MAMM 1 YR [facility] Accredited Performing Facility: [facility] - Mammography/DEXA Imaging [address] [facility] [id number] Procedure Note Garfield Robins MD - 05/31/2024 ARY HARDEN 1970 [id number] EXAM: MAMM SCREENING BILATERAL W CAD, 05/30/2024 9:45 AM CLINICAL INDICATIONS: Screening, Encounter for screening mammogram formalignant neoplasm of breast COMPARISON: 09/29/2022 TECHNIQUE: Bilateral digital tomosynthesis MLO and CC views of the breastswere obtained, with creation of synthetic 2D views. Computer aideddetection was utilized. FINDINGS: There are scattered areas of fibroglandular density. There are no suspicious masses, calcifications, or areas of architecturaldistortion. IMPRESSION: No mammographic evidence of malignancy. BI-RADS: BI-RADS 1 - Negative RECOMMENDATION: Routine screening mammogram in 1 year. RISK ASSESSMENT: TC Lifetime risk: 6.41%. The patient's reported personal and family medical history was usedcalculate their Tyrer-Cuzick lifetime risk of malignancy. Scores less than20% are not considered high risk per ACR guidelines and patient shouldcontinue with the above recommendation. Finalized by Garfield Robins MD on 05/31/2024 9:31 AM 1 b MAMM 1 YR [facility] Accredited Performing Facility: [facility] - Mammography/DEXA Imaging [address] [facility] [address] Garfield Mckinney MD IMG MAMMOGRAPHY ORDERABLES F inal Result * High risk HPV w/mayank (09/23/2022 6:35 AM EDT) Hpv specimen type ThinPrep 09/24/2022 6:36 AM EDT [facility] Hpv 16 Negative Negative^N egative 09/24/2022 2:34 PM EDT [facility] Hpv 18 Negative Negative^N egative 09/24/2022 2:34 PM EDT [facility] Other high risk hpv Negative Negative^N egative 09/24/2022 2:34 PM EDT [facility] Comment: HPV types 31,33,35,39,45,52,56,58,59,66 and 68 DNA were undetectable. THINP 09/23/2022 6:35 AM EDT 09/24/2022 6:36 AM EDT us Helen Sandoval TOOL ADJUSTER-STAFF OCCUPATIONAL THERAPIST LAB BLOOD ORDERABLES Fin al Result [facility] [address] [facility], [place] [address] [facility] [address] [place] [address], [address] [place] [address] from Last 3 Months or Most Recently Relevant to Health Maintenance Insurance [employer] Care Teams Director Of Education Relationship Specialty Start Date End Date Dmitriy Shannon MD [address] [place] [phone] PCP - General Internal Medicine 11/08/24
--- OUTSIDE RECORDS SUMMARY | 2025-03-04 11:30 | XMS_ITS | Encounter Summary ---
Author Organization [employer] tem Address [facility]-[id number] [address] [place] [address] Care Team Providers Care Medical Coding Technician Name Role Phone Dmitriy Shannon MD Primary Care Provider [phone] Reason for Visit * Reason Comments Med Refill Encounter Details Date Type Department Care Team ([facility] Contact Info) Description 09/25/2018 Refill [facility] [address] [place] [address] [place] [address] [place] [address]. Provider retired 10/11/24 [place] [address] Social History Tobacco Use Types Packs/Day Years Used Date Smoking Tobacco: Every Day Smokeless Tobacco: Never Alcohol Use Standard Drinks/Week Comments Yes 0 (1 standard drink = 0.6 oz pur e alcohol) PHQ-2 Answer Date Recorded PHQ-2 Score 0 07/23/2018 Comments No Sex and Gender Information Value Date Recorded Sex Assigned at Not on file Legal Sex Female 12:01 PM EDT Gender Identity Not on file Sexual Orientation Not on file documented as of this encounter Plan of Treatment Upcoming Encounters Date Type Department Care Team ([facility] Contact Info) Description 05/18/2025 4:00 PM EST Office Visit [facility] [address] [place] [address] Dmitriy Shannon MD [address] [place] [address] documented as of this encounter [...] documented as of this encounter Care Teams Medical Coding Technician Relationship Specialty Start Date End Date Dmitriy Shannon MD [address] [place] [address] PCP - General Internal Medicine 11/08/24 documented as of this encounter
--- OUTSIDE RECORDS SUMMARY | 2025-03-04 11:30 | XMS_ITS | Encounter Summary ---
Author Organization [employer] Address [id number] [address] [place] [address] Care Team Providers Care Parts Manager Name Role Phone Dmitriy Shannon MD Primary Care Provider [phone] Reason for Visit * Reason Comments Med Refill Encounter Details Date Type Department Care Team (Late st Contact Info) Description 11/17/2024 Refill [facility] [address] [place] [address] Sandee Garcia, LATA-BAG BUNDLER [address] [place], [place] [phone] Social History Tobacco Use Types Packs/Day Years [...] week 03/21/2021 How often do you attend spiritism or orthodoxy serv ices? Never 03/21/2021 Do you belong to any clubs o r organizations such as spiritism groups, unions, fraternal or athletic groups, or [...] Answer Date Recorded Total Score 0 05/10/2024 [facility] Occupat ional Health - Occupational Stress [...] Do you need help finding a l al career center and/or a training program? [...] EST Office Visit [facility] [address] [place] [phone] Dmitriy Shannon MD [address] [place] [address] documented as of this encounter Visit Diagnoses Not on filedocumented in this encounter Additional Health Concerns Assessment Noted Time PHQ-9 Depression Total Score: 0 05/10/20 24 7:00 AM EDT A Body Mass Index follow-up plan has been documented for the patient 05/16/2019 12:28 PM EST documented as of this encounter Care Teams Parts Manager Relationship Specialty Start Date End Date Dmitriy Shannon MD [address] [place] [address] PCP - General Internal Medicine 11/08/24 documented as of this encounter
--- OUTSIDE RECORDS SUMMARY | 2025-03-04 11:30 | XMS_ITS | Encounter Summary ---
Author Organization [employer] Address [facility]-[id number] [address] [place] [address] Care Team Providers Care Mononitrotoluene Operator Name Role Phone Dmitriy Shannon MD Primary Care Provider [phone] Reason for Visit * Reason Comments Med Refill Encounter Details Date Type Department Care Team (Late st Contact Info) Description 09/11/2022 Refill [facility] [address] [place] [address] Garfield Mckinney MD [address]. Provider retired 10/11/24 [place] [address] Social History Tobacco Use Types [...] week 03/21/2021 How often do you attend jehovah's witness or yarsani serv ices? Never 03/21/2021 Do you belong to any clubs o r organizations such as jehovah's witness groups, unions, fraternal or athletic groups, or [...] PHQ-2 Answer Date Recorded Total Score 0 08/18/2022 [facility] Occupat ional Health - Occupational Stress [...] have Coronavirus / COVID-19? No / Unsure 08/22/2022 6:22 AM EST documented as of this encounter Plan of Treatment Upcoming Encounters Date Type Department Care Team (Late st Contact Info) Description 05/18/2025 4:00 PM EST Office Visit [facility] [address] [place] [phone] Dmitriy Shannon MD [address] [place] [address] documented as of this encounter Visit Diagnoses Not on filedocumented in this encounter Additional Health Concerns Assessment Noted Time PHQ-9 Depression Total Score: 0 08/18/19 23 7:00 AM EST A Body Mass Index follow-up plan has been documented for the patient 05/16/2019 12:28 PM EST documented as of this encounter Care Teams Mononitrotoluene Operator Relationship Specialty Start Date End Date Dmitriy Shannon MD [address] [place] [address] PCP - General Internal Medicine 11/08/24 documented as of this encounter
--- OUTSIDE RECORDS SUMMARY | 2025-03-04 11:30 | XMS_ITS | Clinical Summary ---
Author Organization [facility] Healthcare Address [address] [facility] [place] [address] Care Team Providers Care Wrecker Operator Name Role Phone Randi Gardner MD Primary Care Provider [phone] Family History Medical History Relation Name Comments Diabetes Father Heart disease Father Hypertension Father Diabetes Mother Heart disease Mother Hypertension Mother Relation Name Status Comments Father Alive [...] Sign Reading Time Taken Comments Blood Pressure - - Pulse - - Temperature - - Respiratory Rate - - Oxygen Saturation - - Inhaled Oxygen Concentration - - Weight 68 kg (150 lb) 11/19/2022 12:00 PM EDT Height 156.2 cm (5' 1.5 ) 11/19/2022 12:00 PM ED T Body Mass Index 27.88 11/19/2022 12:00 PM EDT Plan of Treatment Health Maintenance Due Date Last Done Comments CT Colonography 1971 Colonoscopy 1971 Colorectal Cancer Screening 1971 FIT-DNA 1971 FIT 1971 FOBT 1971 Sigmoidoscopy 1971 Pap Smear 1992 Influenza Vaccine (#1) 2025 03/27/2021, 2018, 05/01/2014 Mammogram 05/30/2025 05/30/2024, 09/11, 05/27/2019, Additional history exists Cervical Cancer Screening 09/24/2027 HPV/Cotest 09/24/2027 09/23/2022 Procedures Procedure Name Priority Date/Time Associated Diagnosis Comments BI MAMMOGRAM SCREENING TOMOSYNTHESIS BILATERAL Routine 05/27/2019 12:00 PM EST from Last 3 Months or Most Recently Relevant to Health Maintenance Results * Bilateral screening mammogram with tomosynthesis (05/27/2019 12:00 PM EST) Anatomical Region Laterality Modality Breast Bilateral Mammography Narrative 05/27/2019 12:00 PM EST PERFORMED AT [facility] LOCATION:[id number] Procedure Note Ralph Villatoro MD - 01/16/[address] [facility] LOCATION:[id number] us Ralph Villatoro MD IMG BI PROCEDURES Final Resu lt from Last 3 Months or Most Recently Relevant to Health Maintenance Care Teams Wrecker Operator Relationship Specialty Start Date End Date Randi Gardner MD [address] [place] [address] PCP - General Family Medicine 02/04/23
--- OUTSIDE RECORDS SUMMARY | 2025-03-04 11:31 | XMS_ITS | Encounter Summary ---
Author Organization [employer] Address [facility]-[id number] [address] [place] [address] Care Team Providers Care Chief Data Officer Name Role Phone Dmitriy Shannon MD Primary Care Provider [phone] Reason for Visit * Reason Onset Date Comments Med Refill 04/04/2024 Encounter Details Date Type Department Care Team (Late st Contact Info) Description 04/04/2024 Refill [facility] [address] [place] [phone] Ebony Vines LPN Social History Tobacco Use [...] week 03/21/2021 How often do you attend orthodox or methodist serv ices? Never 03/21/2021 Do you belong to any clubs o r organizations such as orthodox groups, unions, fraternal or athletic groups, or [...] PHQ-2 Answer Date Recorded Total Score 0 09/18/2023 [facility] Occupat ional Health - Occupational [...] got money to buy more. Never True 02/03/2024 Within the past 12 months th e food we bought just didn't last and we didn't have money to get more. Never True 02/03/2024 Purpose - Life Answer Date Recorded I [...] Office Visit [facility] [address] [place] [phone] Dmitriy Shannon MD [address] [place] [phone] documented as of this encounter Visit Diagnoses Not on filedocumented in this encounter Additional Health Concerns Assessment Noted Time PHQ-9 Depression Total Score: 0 09/18/19 24 7:00 AM EST A Body Mass Index follow-up plan has been documented for the patient 05/16/2019 12:28 PM EST documented as of this encounter Care Teams Chief Data Officer Relationship Specialty Start Date End Date Dmitriy Shannon MD [address] [place] [address] PCP - General Internal Medicine 11/08/24 documented as of this encounter
--- OUTSIDE RECORDS SUMMARY | 2025-03-04 11:31 | XMS_ITS | Encounter Summary ---
Author Organization [employer] Address [facility]-[id number] [address] [place] [address] Care Team Providers Care Glaze Grinder Name Role Phone Dmitriy Shannon MD Primary Care Provider [phone] Reason for Visit * Reason Onset Date Comments Med Refill 04/30/2020 Encounter Details Date Type Department Care Team (Late st Contact Info) Description 04/30/2020 Refill [facility] [address] [place] [phone] Ebony Vines LPN Anxiety Social History Tobacco Use Types Packs/Day Years Used Date Smoking Tobacco: Some Days Cigarettes Smokeless Tobacco: Never Alcohol Use Standard Drinks/Week Comments Yes 0 (1 standard drink = 0.6 oz pur e alcohol) occassionally AUDIT-C Answer Date Recorded Frequency of Alcohol Consumption Monthly or less 08/03/2019 Average Number of Drinks 1 or 2 020 Frequency of Binge Drinking Never 07/14 PHQ-2 Answer Date Recorded PHQ-2 Score 0 08/03/2019 Childcare Answer Date Recorded Childcare Unknown 12/22/2018 Employment Answer Date Recorded Employment Unknown 12/22/2018 Comments No Sex and Gender Information Value Date Recorded Sex Assigned at Not on file Legal Sex Female 12:01 PM EDT Gender Identity Not on file Sexual Orientation Not on file documented as of this encounter Miscellaneous Notes * Telephone Encounter - Ebony Vines LPN - 04/30/2020 10:46 AM EDT Requesting refill of Xanax to [facility] Ebony Vines LPN 04/30/20 1047 documented in this encounter Plan of Treatment Upcoming Encounters Date Type Department Care Team (Late st Contact Info) Description 05/18/2025 4:00 PM EST Office Visit [facility] [address] [place] [address] [place] [address] [place] [address] documented as of this encounter Visit Diagnoses Diagnosis Anxiety Anxiety state, unspecified documented in this encounter Additional Health Concerns Infection Onset Date Last Indicated Resolved Time COVID-19 Rule-Out 07/03/2020 06/22/2020 07/03/2020 12:53 PM EST Assessment Noted Time PHQ-9 Depression Total Score: 0 02/22/20 9:00 AM EDT A Body Mass Index follow-up plan has been documented for the patient 05/16/2019 12:28 PM EST documented as of this encounter Care Teams Glaze Grinder Relationship Specialty Start Date End Date Dmitriy Shannon MD [address] [place] [address] PCP - General Internal Medicine 11/08/24 documented as of this encounter
--- OUTSIDE RECORDS SUMMARY | 2025-03-04 11:31 | XMS_ITS | Encounter Summary ---
[facility] Organization [facility] Address [facility] [id number] [address] [place] [address] Care Team Providers Care Instructional Assistant Name Role Phone Dmitriy Shannon MD Primary Care Provider [phone] Reason for Visit * Reason Onset Date Comments Med Refill 09/28/2020 Encounter Details Date Type Department Care Team (Late st Contact Info) Description 09/28/2020 Refill [facility] [address] [place] [phone] Sandee Garcia, MINIBUS DRIVER-ESTATE PLANNING COUNSELOR [address] [place], [place] [phone] Anxiety Social History Tobacco Use Types Packs/Day [...] Drinking Never 07/14 PHQ-2 Answer Date Recorded Total Score 0 09/28/2020 Childcare Answer Date Recorded Childcare Unknown 12/22/2018 Employment Answer Date Recorded Employment Unknown 12/22/2018 Purpose - Life Answer Date Recorded Purpose and direction in life Unknown Comments No Sex and Gender Information Value Date Recorded Sex Assigned at Not on file Legal Sex Female 12:01 PM EDT Gender Identity Not on file Sexual Orientation Not on file COVID-19 Exposure Response Date Recorded In the last month, have you been in contact with someone who was confirmed or suspected to have Coronavirus / COVID-19? No / Unsure 09/28/2020 10:48 AM EDT documented as of this encounter Miscellaneous Notes * Telephone Encounter - Roland Key CMA - 09/28/2020 10:31 AM EDT Patient requesting refills Roland Key CMA 09/28/20 1101 documented in this encounter Plan of Treatment Upcoming Encounters Date Type Department Care Team (Late st Contact Info) Description 05/18/2025 4:00 PM EST Office Visit [facility] [address] [place] [phone] Dmitriy Shannon MD [address] [place] [address] documented as of this encounter Visit Diagnoses Diagnosis Anxiety Anxiety state, unspecified documented in this encounter Additional Health Concerns Assessment Noted Time PHQ-9 Depression Total Score: 0 09/29/19 21 11:00 AM EDT A Body Mass Index follow-up plan has been documented for the patient 05/16/2019 12:28 PM EST documented as of this encounter Care Teams Instructional Assistant Relationship Specialty Start Date End Date Dmitriy Shannon MD [address] [place] [address] PCP - General Internal Medicine 11/08/24 documented as of this encounter
--- OUTSIDE RECORDS SUMMARY | 2025-03-04 11:31 | XMS_ITS | Encounter Summary ---
Author Organization [employer] Sys tem Address [facility] [id number] [address] [place] [address] Care Team Providers Care Warehouse Packer Name Role Phone Dmitriy hSannon MD Primary Care Provider [phone] Encounter Details Date Type Department Care Team (Late st Contact Info) Description 11/30/2024 [facility] [address] [place] [address] Cassandra Hameed CMA Social History Tobacco Use Types Packs/Day [...] week 03/21/2021 How often do you attend worship or mormon serv ices? Never 03/21/2021 Do you belong to any clubs o r organizations such as worship groups, unions, fraternal or athletic groups, or [...] Answer Date Recorded Total Score 0 11/30/2024 [facility] of Occupat ional Health - Occupational Stress [...] Recorded Do you need help finding a [facility] career center and/or a training program? No [...] encounter Miscellaneous Notes * Telephone Encounter - Cassandra Hameed CMA - 11/30/2024 12:12 PM EDT Faxed demo and last 2 visits. Advised patient to fill out new patient forms @ [employer] * Telephone Encounter - Cassandra Hameed CMA - 11/30/2024 12:12 PM EDT Per [facility] received referral and contacted pt. Still needing to fill out new patient forms online. I left a message on patient vm to compete forms and then, call [facility] to schedule appt. * Telephone Encounter - Cassandra Hameed CMA - 11/30/2024 12:12 PM EDT Appt 01/23/25 @ 1:30pm documented in this encounter Plan of Treatment Upcoming Encounters Date Type Department Care Team (Late st Contact Info) Description 05/18/2025 4:00 PM EST Office Visit [facility] [address] [place] [phone] Dmitriy Shannon MD [address] [place] [address] documented as of this encounter Visit Diagnoses Not on filedocumented in this encounter Additional Health Concerns Assessment Noted Time PHQ-9 Depression Total Score: 0 12/01/19 11:36 AM EDT A Body Mass Index follow-up plan has been documented for the patient 11/30/2024 11:57 AM EDT documented as of this encounter Care Teams Warehouse Packer Relationship Specialty Start Date End Date Dmitriy Shannon MD [address] [place] [address] PCP - General Internal Medicine 11/08/24 documented as of this encounter
--- OUTSIDE RECORDS SUMMARY | 2025-03-04 11:31 | XMS_ITS | Encounter Summary ---
Author Organization [employer] Sys [employer] Address [facility] [id number] [address] [place] [address] Care Team Providers Care Light Coil Winder Name Role Phone Dmitriy Shannon MD Primary Care Provider [phone] Reason for Visit * Reason Onset Date Comments Med Refill 01/16/2022 Encounter Details Date Type Department Care Team (Late st Contact Info) Description 01/16/2022 Refill [facility] [address] [place] [phone] Ebony Vines LPN Social History Tobacco Use [...] week 03/21/2021 How often do you attend alevism or oriental orthodox serv ices? Never 03/21/2021 Do you belong to any clubs o r organizations such as alevism groups, unions, fraternal or athletic groups, or [...] Answer Date Recorded Total Score 7 03/21/2021 [facility] of Occupat ional Health - Occupational Stress [...] EST Office Visit [facility] [address] [place] [phone] Dmitriy Shannon MD [address] [place] [phone] documented as of this encounter Visit Diagnoses Not on filedocumented in this encounter Additional Health Concerns Assessment Noted Time PHQ-9 Depression Total Score: 7 03/21/20 21 9:32 AM EDT A Body Mass Index follow-up plan has been documented for the patient 05/16/2019 12:28 PM EST documented as of this encounter Care Teams Light Coil Winder Relationship Specialty Start Date End Date Dmitriy Shannon MD [address] [place] [address] PCP - General Internal Medicine 11/08/24 documented as of this encounter
--- OUTSIDE RECORDS SUMMARY | 2025-03-04 11:31 | XMS_ITS | Encounter Summary ---
Author Organization [employer] Sys [employer] Address [id number] [address] [place] [address] Care Team Providers Care Child Life Therapist Name Role Phone Dmitriy Shannon MD Primary Care Provider [phone] Reason for Visit * Reason Onset Date Comments Med Refill 08/13/2020 Encounter Details Date Type Department Care Team (Late st Contact Info) Description 08/13/2020 Refill [facility] [address] [place] [phone] Garfield Mckinney MD [address]. Provider retired 10/11/24 [place], [place] [phone] Anxiety Social History Tobacco Use Types Packs/Day [...] encounter Miscellaneous Notes * Telephone Encounter - Susie Kerr CMA - 08/13/2020 8:15 AM EST Requesting refill of xanax Susie Kerr CMA 08/13/20 0823 documented in this encounter Plan of Treatment Upcoming Encounters Date Type Department Care Team (Late st Contact Info) Description 05/18/2025 4:00 PM EST Office Visit [facility] [address] [place] [phone] Dmitriy Shannon MD [address] [place] [address] documented as of this encounter Visit Diagnoses Diagnosis Anxiety Anxiety state, unspecified documented in this encounter Additional Health Concerns Assessment Noted Time PHQ-9 Depression Total Score: 0 02/22/20 20 9:00 AM EDT A Body Mass Index follow-up plan has been documented for the patient 05/16/2019 12:28 PM EST documented as of this encounter Care Teams Child Life Therapist Relationship Specialty Start Date End Date Dmitriy Shannon MD [address] [place] [address] PCP - General Internal Medicine 11/08/24 documented as of this encounter
--- OUTSIDE RECORDS SUMMARY | 2025-03-04 11:31 | XMS_ITS | Encounter Summary ---
Author Organization [employer] Sys [employer] Address [facility] [id number] [address] [place] [address] Care Team Providers Care Production Expediter Name Role Phone Dmitriy Shannon MD Primary Care Provider [phone] Reason for Visit * Reason Onset Date Comments Med Refill 01/31/2020 Encounter Details Date Type Department Care Team (Late st Contact Info) Description 01/31/2020 Refill [facility] [address] [place] [phone] Ebony Vines LPN Anxiety Social History Tobacco [...] Telephone Encounter - Ebony Vines LPN - 01/31/2020 2:09 PM EDT Requesting refill of Xanax to [facility] Ebony Vines LPN 01/31/20 1410 documented in this encounter Plan of Treatment Upcoming Encounters Date Type Department Care Team (Late st Contact Info) Description 05/18/2025 4:00 PM EST Office Visit [facility] [address] [place] [address] [place] [address] [place] [address] documented as of this encounter Visit Diagnoses Diagnosis Anxiety Anxiety state, unspecified documented in this encounter Additional Health Concerns Infection Onset Date Last Indicated Resolved Time COVID-19 Rule-Out 07/03/2020 06/22/2020 07/03/2020 12:53 PM EST Assessment Noted Time PHQ-9 Depression Total Score: 0 11/30/19 20 11:00 AM EDT A Body Mass Index follow-up plan has been documented for the patient 05/16/2019 12:28 PM EST documented as of this encounter Care Teams Production Expediter Relationship Specialty Start Date End Date Dmitriy Shannon MD [address] [place] [address] PCP - General Internal Medicine 11/08/24 documented as of this encounter
--- OUTSIDE RECORDS SUMMARY | 2025-03-04 11:31 | XMS_ITS | Encounter Summary ---
Author Organization [facility] Address [id number] [address] [place] [address] Care Team Providers Care Talent Development Consultant Name Role Phone Dmitriy Shannon MD Primary Care Provider [phone] Reason for Visit * Reason Onset Date Comments Med Refill 06/29/2024 Encounter Details Date Type Department Care Team (Late st Contact Info) Description 06/29/2024 Refill [facility] [address] [place] [phone] Garfield Mckinney MD [address]. Provider retired 10/11/24 [place], [place] [phone] Anxiety Social History Tobacco Use Types Packs/Day [...] week 03/21/2021 How often do you attend baptist or orthodox serv ices? Never 03/21/2021 Do you belong to any clubs o r organizations such as baptist groups, unions, fraternal or athletic groups, or [...] Answer Date Recorded Total Score 0 05/10/2024 [facility] of Occupat ional Health - Occupational [...] Recorded Do you need help finding a [facility] career [facility] and/or a training [...] Telephone Encounter - Ebony Vines LPN - 06/29/2024 3:08 PM EST Patient via MyChart requesting refill [facility]olam [facility] documented in this encounter Plan of Treatment Upcoming Encounters Date Type Department Care Team (Late st Contact Info) Description 05/18/2025 4:00 PM EST Office Visit [facility] [address] [place] [phone] Dmitriy Shannon MD [address] [place] [address] documented as of this encounter Visit Diagnoses Diagnosis Anxiety Anxiety state, unspecified documented in this encounter Additional Health Concerns Assessment Noted Time PHQ-9 Depression Total Score: 0 05/10/20 24 7:00 AM EDT A Body Mass Index follow-up plan has been documented for the patient 05/16/2019 12:28 PM EST documented as of this encounter Care Teams Talent Development Consultant Relationship Specialty Start Date End Date Dmitriy Shannon MD [address] [place], [place] [phone] PCP - General Internal Medicine 11/08/24 documented as of this encounter
--- OUTSIDE RECORDS SUMMARY | 2025-03-04 11:31 | XMS_ITS | Encounter Summary ---
Author Organization [employer] Sys [employer] Address [facility] [id number] [address] [place] [address] Care Team Providers Care Scientific Affairs Manager Name Role Phone Dmitriy Shannon MD Primary Care Provider [phone] Encounter Details Date Type Department Care Team (Late st Contact Info) Description 01/16/2022 [facility] [address] [place] [address] Cassandra Hameed CMA Social History [...] week 03/21/2021 How often do you attend samaritan or zoroastrian serv ices? Never 03/21/2021 Do you belong to any clubs o r organizations such as samaritan groups, unions, fraternal or athletic groups, or [...] Answer Date Recorded Total Score 7 03/21/2021 [facility] of Occupat ional Health - Occupational [...] Recorded Do you need help finding a [facility] career center and/or a training [...] Telephone Encounter - Cassandra Hameed CMA - 01/16/2022 3:52 PM EDT ----- Message from Ebony Vines LPN sent at 01/16/2022 9:12 AM EDT ----- Regarding: Appointment Please call patient and schedule check up appointment. Thanks * Telephone Encounter - Cassandra Hameed CMA - 01/16/2022 3:52 PM EDT Scheduled 02/05/22 documented in this encounter Plan of Treatment Upcoming Encounters Date Type Department Care Team (Late st Contact Info) Description 05/18/2025 4:00 PM EST Office Visit [facility] [address] [place] [phone] Dmitriy Shannon MD [address] [place] [address] documented as of this encounter Visit Diagnoses Not on filedocumented in this encounter Additional Health Concerns Assessment Noted Time PHQ-9 Depression Total Score: 7 03/21/20 21 9:32 AM EDT A Body Mass Index follow-up plan has been documented for the patient 05/16/2019 12:28 PM EST documented as of this encounter Care Teams Scientific Affairs Manager Relationship Specialty Start Date End Date Dmitriy Shannon MD [address] [place] [address] PCP - General Internal Medicine 11/08/24 documented as of this encounter
--- OUTSIDE RECORDS SUMMARY | 2025-03-04 11:31 | XMS_ITS | Encounter Summary ---
Author Organization [employer] Sys [employer] Address [facility] [id number] [address] [place] [address] Care Team Providers Care Graphics Manager Name Role Phone Dmitriy Shannon MD Primary Care Provider Reason for Visit * Reason Onset Date Comments Med Refill 09/28/2020 Encounter Details Date Type Department Care Team (Late st Contact Info) Description 09/28/2020 Refill [facility] [address] [place] [phone] Garfield Mckinney MD [address]. Provider retired 10/11/24 [place], [place] [phone] Anxiety Social History Tobacco Use Types Packs/Day [...] AM EDT documented as of this encounter Plan of Treatment Upcoming Encounters Date Type Department Care Team (Late st Contact Info) Description 05/18/2025 4:00 PM EST Office Visit [facility] [address] [place] [phone] Dmitriy Shannon MD [address] [place] [address] documented as of this encounter Visit Diagnoses Diagnosis Anxiety Anxiety state, unspecified documented in this encounter Additional Health Concerns Assessment Noted Time PHQ-9 Depression Total Score: 0 09/29/19 21 11:00 AM EDT A Body Mass Index follow-up plan has been documented for the patient 05/16/2019 12:28 PM EST documented as of this encounter Care Teams Graphics Manager Relationship Specialty Start Date End Date Dmitriy Shannon MD [address] [place] [phone] PCP - General Internal Medicine 11/08/24 documented as of this encounter
--- OUTSIDE RECORDS SUMMARY | 2025-03-04 11:31 | XMS_ITS | Encounter Summary ---
Author Organization [employer] Sys [employer] Address [facility] [place][id number] [address] [place] [address] Care Team Providers Care Paper Products Inspector Name Role Phone Dmitriy Shannon MD Primary Care Provider [phone] Encounter Details Date Type Department Care Team (Late st Contact Info) Description 10/23/2020 Orders Only [facility] [address] [place] [address] Susie Kerr, AUTOMOTIVE POWER ELECTRONICS ENGINEER Social History Tobacco Use Types Packs/Day Years [...] EST Office Visit [facility] [address] [place] [phone] Dmitriy Shanonn MD [address] [place] [phone] documented as of this encounter Visit Diagnoses Not on filedocumented in this encounter Additional Health Concerns Assessment Noted Time PHQ-9 Depression Total Score: 0 09/29/19 21 11:00 AM EDT A Body Mass Index follow-up plan has been documented for the patient 05/16/2019 12:28 PM EST documented as of this encounter Care Teams Paper Products Inspector Relationship Specialty Start Date End Date Dmitriy Shannon MD [address] [place] [address] PCP - General Internal Medicine 11/08/24 documented as of this encounter
--- OUTSIDE RECORDS SUMMARY | 2025-03-04 11:31 | XMS_ITS | Encounter Summary ---
Author Organization [employer] Address [facility] [place][id number] [address] [place] [address] Care Team Providers Care Machine Tool Designer Name Role Phone Dmitriy Shannon MD Primary Care Provider [phone] Encounter Details Date Type Department Care Team (Late Contact Info) Description 07/03/2020 Orders Only [facility] [address] [place] [address] Garfield Mckinney MD [address]. Provider retired 10/11/24 [place], [place] [phone] Close exposure to COVID-19 virus Social History Tobacco Use Types Packs/Day Years [...] EST Office Visit [facility] [address] [place] [phone] Dmitriy Shannon MD [address] [place] [address] documented as of this encounter Procedures Procedure Name Priority Date/Time Associated Diagnosis Comments SARS COV 2 (COVID-19) Routine 06/22/2020 Close exposure to COVID-19 virus documented in this encounter Results * SARS COV 2 (COVID-19)[Lab Collect] (06/22/2020) EXTERNAL SARS COV 2 Negative Negative SUNQUEST NASOPHARYNGEAL 06/22/2020 Garfield Mckinney MD MICROBIOLOGY - GENERAL ORDER [place] Final Result SUNQUEST documented in this encounter Visit Diagnoses Diagnosis Close exposure to COVID-19 virus documented in this encounter Additional Health Concerns Infection Onset Date Last Indicated Resolved Time COVID-19 Rule-Out 07/03/2020 06/22/2020 07/03/2020 12:53 PM EST Assessment Noted Time PHQ-9 Depression Total Score: 0 02/22/20 20 9:00 AM EDT A Body Mass Index follow-up plan has been documented for the patient 05/16/2019 12:28 PM EST documented as of this encounter Care Teams Machine Tool Designer Relationship Specialty Start Date End Date Dmitriy Shannon MD [address] [place] [address] PCP - General Internal Medicine 11/08/24 documented as of this encounter
--- OUTSIDE RECORDS SUMMARY | 2025-03-04 11:31 | XMS_ITS | Encounter Summary ---
Author Organization [employer] Address [facility] [id number] [address] [place] [address] Care Team Providers Care Head Strength And Conditioning Coach Name Role Phone Dmitriy Shannon MD Primary Care Provider [phone] Reason for Visit * Reason Onset Date Comments Med Refill 09/05/2024 Encounter Details Date Type Department Care Team (Late st Contact Info) Description 09/05/2024 Refill [facility] [address] [place] [phone] Vita Laughlin, PULP PLANT SUPERVISOR Anxiety Social History Tobacco Use Types Packs/Day [...] week 03/21/2021 How often do you attend denominational or yarsanism serv ices? Never 03/21/2021 Do you belong to any clubs o r organizations such as denominational groups, unions, fraternal or athletic groups, or [...] Answer Date Recorded Total Score 0 05/10/2024 [facility] of Occupat ional Health - [...] EST Office Visit [facility] [address] [place] [phone] Dmitriy Shannon MD [address] [place] [address] documented as of this encounter Visit Diagnoses Diagnosis Anxiety Anxiety state, unspecified documented in this encounter Additional Health Concerns Assessment Noted Time PHQ-9 Depression Total Score: 0 05/10/20 24 7:00 AM EDT A Body Mass Index follow-up plan has been documented for the patient 05/16/2019 12:28 PM EST documented as of this encounter Care Teams Head Strength And Conditioning Coach Relationship Specialty Start Date End Date Dmitriy Shannon MD [address] [place] [address] PCP - General Internal Medicine 11/08/24 documented as of this encounter
--- OUTSIDE RECORDS SUMMARY | 2025-03-04 11:31 | XMS_ITS | Encounter Summary ---
Author Organization [employer] Sys [employer] Address [facility] [id number] [address] [place] [address] Care Team Providers Care Middle School Reading Teacher Name Role Phone Dmitriy Shannon MD Primary Care Provider [phone] Reason for Visit * Reason Onset Date Comments Med Refill 04/04/2024 Encounter Details Date Type Department Care Team (Late st Contact Info) Description 04/04/2024 Refill [facility] [address] [place] [phone] Garfield Mckinney MD [address]. Provider retired 10/11/24 [place], [place] [phone] Anxiety Social History Tobacco Use Types Packs/Day [...] How often do you attend sikh or evangelical serv ices? Never 03/21/2021 Do you belong [...] Answer Date Recorded Total Score 0 09/18/2023 [facility] of Occupat ional Health - Occupational Stress [...] Recorded Do you need help finding a [facility] and/or a training program? [...] EST Office Visit [facility] [address] [place] [phone] Dmitriy Shannon MD [address] [place] [address] documented as of this encounter Visit Diagnoses Diagnosis Anxiety Anxiety state, unspecified documented in this encounter Additional Health Concerns Assessment Noted Time PHQ-9 Depression Total Score: 0 09/18/19 24 7:00 AM EST A Body Mass Index follow-up plan has been documented for the patient 05/16/2019 12:28 PM EST documented as of this encounter Care Teams Middle School Reading Teacher Relationship Specialty Start Date End Date Dmtiriy Shannon MD [address] [place] [address] PCP - General Internal Medicine 11/08/24 documented as of this encounter
--- OUTSIDE RECORDS SUMMARY | 2025-03-04 11:31 | XMS_ITS | Encounter Summary ---
Author Organization [employer] Address [id number] [address] [place] [address] Care Team Providers Care Loft Patternmaker Name Role Phone Dmitriy Shannon MD Primary Care Provider [phone] Reason for Visit * Reason Onset Date Comments Med Refill 01/11/2025 Encounter Details Date Type Department Care Team (Late st Contact Info) Description 01/11/2025 Refill [facility] [address] [place] [phone] Dmitriy Shannon MD [address] [place] [address] Anxiety Social History Tobacco Use Types Packs/Day [...] week 03/21/2021 How often do you attend lutheran or rastafari serv ices? Never 03/21/2021 Do you belong to any clubs o r organizations such as lutheran groups, unions, fraternal or athletic groups, or [...] Answer Date Recorded Total Score 0 11/30/2024 [facility] - Occupational Stress Questionnaire Answer Date Recorded [...] Recorded Do you need help finding a [facility] career center and/or a training program? [...] EST Office Visit [facility] [address] [place] [phone] Dmitriy Shannon MD [address] [place] [address] [phone] documented as of this encounter Visit Diagnoses Diagnosis Anxiety Anxiety state, unspecified documented in this encounter Additional Health Concerns Assessment Noted Time PHQ-9 Depression Total Score: 0 12/01/19 11:36 AM EDT A Body Mass Index follow-up plan has been documented for the patient 11/30/2024 11:57 AM EDT documented as of this encounter Care Teams Loft Patternmaker Relationship Specialty Start Date End Date Dmitriy Shannon MD [address] [place] [address] PCP - General Internal Medicine 11/08/24 documented as of this encounter
--- OUTSIDE RECORDS SUMMARY | 2025-03-04 11:31 | XMS_ITS | Encounter Summary ---
Author Organization [employer] Address [facility] [id number] [address] [place] [address] Care Team Providers Care Curb Setter Name Role Phone Dmitriy Shannon MD Primary Care Provider Encounter Details Date Type Department Care Team (Late st Contact Info) Description 10/23/2020 Orders Only [facility] [address] [place] [address] Garfield Mckinney MD [address]. Provider retired 10/11/24 [place], [place] [phone] Social History Tobacco Use Types Packs/Day Years [...] Office Visit [facility] [address] [place] [address] [place] [address] [place] [address] [phone] documented as of this encounter Visit Diagnoses Not on filedocumented in this encounter Additional Health Concerns Assessment Noted Time PHQ-9 Depression Total Score: 0 09/29/19 21 11:00 AM EDT A Body Mass Index follow-up plan has been documented for the patient 05/16/2019 12:28 PM EST documented as of this encounter Care Teams Curb Setter Relationship Specialty Start Date End Date Dmitriy Shannon MD [address] [place] [address] PCP - General Internal Medicine 11/08/24 documented as of this encounter
--- OUTSIDE RECORDS SUMMARY | 2025-03-04 11:31 | XMS_ITS | Encounter Summary ---
Author Organization [employer] Address [facility] [id number] [address] [place] [address] Care Team Providers Care Winder Operator Name Role Phone Dmitriy Shannon MD Primary Care Provider [phone] Reason for Visit * Reason Onset Date Comments Med Refill 09/08/2024 Encounter Details Date Type Department Care Team (Late st Contact Info) Description 09/08/2024 Refill [facility] [address] [place] [phone] Garfield Mckinney MD [address]. Provider retired 10/11/24 [place], [place] [phone] Anxiety Social History Tobacco Use Types Packs/Day [...] week 03/21/2021 How often do you attend rastafarian or mosque serv ices? Never 03/21/2021 Do you belong to any clubs o r organizations such as rastafarian groups, unions, fraternal or athletic groups, or [...] Answer Date Recorded Total Score 0 05/10/2024 [facility] - Occupational Stress [...] Recorded Do you need help finding a [facility] career center and/or a training program? [...] EST Office Visit [facility] [address] [place] [phone] Dmitriy Shannon MD [address] [place], [place] [phone] documented as of this encounter Visit Diagnoses Diagnosis Anxiety Anxiety state, unspecified documented in this encounter Additional Health Concerns Assessment Noted Time PHQ-9 Depression Total Score: 0 05/10/20 24 7:00 AM EDT A Body Mass Index follow-up plan has been documented for the patient 05/16/2019 12:28 PM EST documented as of this encounter Care Teams Winder Operator Relationship Specialty Start Date End Date Dmitriy Shannon MD [address] [place] [address] PCP - General Internal Medicine 11/08/24 documented as of this encounter
--- OUTSIDE RECORDS SUMMARY | 2025-03-04 11:31 | XMS_ITS | Encounter Summary ---
Author Organization [email or web address] Address [id number] [address] [place] [address] Care Team Providers Care Blower Mechanic Name Role Phone Dmitriy Shannon MD Primary Care Provider [phone] Reason for Visit * Reason Onset Date Comments Med Refill 12/05/2020 Encounter Details Date Type Department Care Team (Late st Contact Info) Description 12/05/2020 Refill [facility] [address] [place] [phone] Garfield Mckinney MD [address]. Provider retired 10/11/24 [place], [place] [phone] Anxiety Social History Tobacco Use Types Packs/Day [...] Miscellaneous Notes * Telephone Encounter - Ebony Jasmyn, ANALYTICS LEADER - 12/05/2020 2:43 PM EDT Requesting refill of Alprazolam documented in this encounter Plan of Treatment Upcoming Encounters Date Type Department Care Team (Late st Contact Info) Description 05/18/2025 4:00 PM EST Office Visit [facility] [address] [place] [phone] Dmitriy Shannon MD [address] [place] [phone] documented as of this encounter Visit Diagnoses Diagnosis Anxiety Anxiety state, unspecified documented in this encounter Additional Health Concerns Assessment Noted Time PHQ-9 Depression Total Score: 0 09/29/19 21 11:00 AM EDT A Body Mass Index follow-up plan has been documented for the patient 05/16/2019 12:28 PM EST documented as of this encounter Care Teams Blower Mechanic Relationship Specialty Start Date End Date Dmitriy Shannon MD [address] [place] [address] PCP - General Internal Medicine 11/08/24 documented as of this encounter
--- OUTSIDE RECORDS SUMMARY | 2025-03-04 11:31 | XMS_ITS | Clinical Summary ---
Author Organization [facility] Address [address], [address] [place] [address] Care Team Providers Care Oyster Picker Name Role Phone Garfield Mckinney MD Primary Care Provider [phone] Allergies Active Allergy Reactions Criticality Noted Date Comments Codeine Other (See Comments) 11/03/2022 Blacked out Latex Itching 04/10/2015 Not allergic to, but highly-sensitive to Other Itching,Rash Low 04/10/2015 Most metals cause itching, rash. In ears, can cause cysts. Medications ALPRAZolam (XANAX) 0.5 MG tablet Take 0.5 mg by mouth 3 times daily as needed for Sleep or Anxiety 03/09/2015 Active cyclobenzaprine (FLEXERIL) 10 MG tablet Take 10 mg by mouth nightly as needed for Muscle spasms 03/02/2015 Active hydrochlorothia zide (MICROZIDE) 12.5 MG capsule Take 12.5 mg by mouth every morning 03/21/2015 Active levothyroxine (SYNTHROID) 50 MCG tablet Take 50 mcg by mouth daily 02/06/2015 Active sertraline (ZOLOFT) 100 MG tablet Take 100 mg by mouth daily 03/02/2015 Active fluticasone (FLONASE) 50 MCG/ACT nasal spray 1 spray by Nasal route as needed for Rhinitis Active [place]-3 Fatty Acids (OMEGA-3 FISH OIL PO) Take 10 mLs by mouth daily as needed Active cephALEXin (KEFLEX) 250 MG capsule Take one PO QID til gone. Start one day prior to surgery / procedure. 12 capsule 12/02/2022 Active Active Problems Problem Noted Date Diagnosed Date Other plastic surgery for unacceptable cosmetic appearance 04/10/2015 Social History Tobacco Use Types Packs/Day Years Used Date Smoking Tobacco: Former Cigarettes 0.5 18 0 08/2004 - 08/2022 Smokeless Tobacco: Never Tobacco Cessation:Counseling Given: Not Answered Comments:Will try to quit TODAY 04/10/2015. Alcohol Use Standard Drinks/Week Comments Yes 1 (1 standard drink = 0.6 oz pure alcohol) Occasionally. Once every other week. Comments Unknown Sex and Gender Information Value Date Recorded Sex Assigned at Not on file Legal Sex Female 11:53 AM EST Gender Identity Not on file Sexual Orientation Not on file Last Filed Vital Signs Vital Sign Reading Time Taken Comments Blood Pressure 134/81 12/18/2022 1:08 PM EDT Pulse 72 12/18/2022 1:08 PM EDT Temperature - - Respiratory Rate 22 02/03/2023 4:02 PM EDT Oxygen Saturation - - Inhaled Oxygen Concentration - - Weight 68 kg (150 lb) 02/03/2023 4:02 PM EDT Height 154.9 cm (5' 1 ) 02/03/2023 4:02 PM EDT Body Mass Index 28.34 02/03/2023 4:02 PM EDT Plan of Treatment Health Maintenance Due Date Last Done Comments Depression Screen 1983 HIV screen 1986 Hepatitis C screen 1989 Pap smear 1992 Cervical cancer screen 2001 HPV (without or with Pap) 2001 Hepatitis B vaccine (3 of 3 - 19+ 3-dose series) 09/06/2010 05/06/2010, 03/06/2010, 10/18/2009 Breast cancer screen 2011 Lipids 2011 Colonoscopy 2016 Colorectal Cancer Screen 2016 FIT/FOBT: Average risk 2016 Fecal-DNA (Cologuard): [place] ge risk 2016 Sigmoidoscopy/CT colonography 2016 Pneumococcal 50+ years Vacci ne (1 of 1 - PCV) 2021 Shingles vaccine (1 of 2) 2021 COVID-19 Vaccine (3 - 2023-2 5 season) 2024 04/19/2021, 03/27/2021 Flu vaccine (#1) 02/10/2025 03/27/2021, 05/04/2019, 05/01/2014 DTaP/Tdap/Td vaccine (3 - Td or Tdap) 03/08/2025 03/08/2015, 11/25/2011 Hepatitis A vaccine Aged Out No longe r eligible based on patient's age to complete this topic Hib vaccine Aged Out No longer eligi ble based on patient's age to complete this topic Meningococcal (ACWY) vaccine Aged Out No longer eligible based on patient's age to complete this topic Meningococcal B vaccine Aged Out No l onger eligible based on patient's age to complete this topic Polio vaccine Aged Out No longer elig ible based on patient's age to complete this topic Care Teams Oyster Picker Relationship Specialty Start Date End Date Garfield Mckinney MD [address] [place] [address] PCP - General Family Medicine 04/10/15
--- OUTSIDE RECORDS SUMMARY | 2025-03-04 11:31 | XMS_ITS | Encounter Summary ---
Author Organization [employer] Address [facility] [id number] [address] [place] [address] Care Team Providers Care Boat Operator Name Role Phone Dmitriy Shannon MD Primary Care Provider [phone] Reason for Visit * Reason Onset Date Comments Med Refill 04/04/2024 Encounter Details Date Type Department Care Team (Late st Contact Info) Description 04/04/2024 Refill [facility] [address] [place] [phone] Garfield Mckinney MD [address]. Provider retired 10/11/24 [place], [place] [phone] Social History Tobacco Use Types Packs/Day Years [...] week 03/21/2021 How often do you attend taoist or orthodox serv ices? Never 03/21/2021 Do you belong to any clubs o r organizations such as taoist groups, unions, fraternal or athletic groups, or [...] Answer Date Recorded Total Score 0 09/18/2023 [facility] - [...] Recorded Do you need help finding a [facility] career center and/or a training program? No [...] EST Office Visit [facility] [address] [place] [phone] Dmitriy Shannon MD [address] [place] [address] [phone] documented as of this encounter Visit Diagnoses Not on filedocumented in this encounter Additional Health Concerns Assessment Noted Time PHQ-9 Depression Total Score: 0 09/18/19 24 7:00 AM EST A Body Mass Index follow-up plan has been documented for the patient 05/16/2019 12:28 PM EST documented as of this encounter Care Teams Boat Operator Relationship Specialty Start Date End Date Dmitriy Shannon MD [address] [place] [address] PCP - General Internal Medicine 11/08/24 documented as of this encounter
--- OUTSIDE RECORDS SUMMARY | 2025-03-04 11:31 | XMS_ITS | Encounter Summary ---
Author Organization [employer] Address [facility] [place][id number] [address] [place] [address] Care Team Providers Care Hose Tubing Backer Name Role Phone Dmitriy Shannon MD Primary Care Provider [phone] Reason for Visit * Reason Onset Date Comments Med Refill 04/04/2024 Encounter Details Date Type Department Care Team (Late st Contact Info) Description 04/04/2024 Refill [facility] [address] [place] [phone] Ebony Vines LPN Anxiety Social History Tobacco [...] week 03/21/2021 How often do you attend temple or caodaism serv ices? Never 03/21/2021 Do you belong to any clubs o r organizations such as temple groups, unions, fraternal or athletic groups, or [...] Telephone Encounter - Ebony Vines LPN - 04/04/2024 1:24 PM EDT Patient via MyChart requesting refill of Alprazolam, Buspirone, Cyclobenzaprine, Fluticasone, HCTZ,Levothyroxine, Lidocaine, Loratadine and Sertraline to [facility] documented in this encounter Plan of Treatment Upcoming Encounters Date Type Department Care Team (Late st Contact Info) Description 05/18/2025 4:00 PM EST Office Visit [facility] [address] [place] [phone] Dmitriy Shannon MD [address] [place] [address] documented as of this encounter Visit Diagnoses Diagnosis Anxiety Anxiety state, unspecified documented in this encounter Additional Health Concerns Assessment Noted Time PHQ-9 Depression Total Score: 0 09/18/19 24 7:00 AM EST A Body Mass Index follow-up plan has been documented for the patient 05/16/2019 12:28 PM EST documented as of this encounter Care Teams Hose Tubing Backer Relationship Specialty Start Date End Date Dmitriy Shannon MD [address] [place] [phone] PCP - General Internal Medicine 11/08/24 documented as of this encounter
--- NOTE | 2025-03-04 11:39 | CT_ITS ---
The [address] [address] Patient Name: ARY ERAZO MRN: [id number] date: 1970 Sex: F Assigned Patient Location: ER Current Patient Location: Accession/Order Number: [id number] Exam Date: 03/04/2025 11:52 Report Date: 03/04/2025 12:12 At the request of: APOORVA BLAKELY DO Procedure: CT lumbar spine wo con CT lumbar spine wo con 03/04/2025 11:59 AM History:Low back pain, tenderness TECHNIQUE: Multi detector CT axial slices of the lumbar spine were obtained without IV contrast. Volumetric acquisition sagittal, coronal, and 3-D reconstructions were performed and reviewed on a separate workstation. CT was performed with one or more of the following dose reduction techniques: Automated exposure control, adjustment of the mA and/or kV according to patient size, or use of iterative reconstruction technique. COMPARISON: None FINDINGS: There is preservation of the vertebral body heights and intervertebral discs. No fractures or dislocations are seen. There is 3 mm of anterolisthesis of L4 upon L5. This appears to be secondary to facet hypertrophy. Lesser degrees of facet degenerative changes are present throughout. Broad-based disc bulge is accompanied by facet hypertrophy contributing to spinal canal stenosis which is greatest at L4-5. Disc degenerative changes with facet hypertrophy and endplate osteophyte formation also contributes to bilateral neural foraminal stenosis at L4-5 and L5-S1. The paraspinous soft tissues are within normal limits. The visualized lung parenchyma is unremarkable. There is a 2 mm nonobstructing stone in the left renal collecting system. Atherosclerotic changes are noted in the abdominal aorta and its branches. CT/CT lumbar spine wo con IMPRESSION: No acute bony abnormality. Facet hypertrophy contributing to 3 mm of anterolisthesis of L4 upon L5. Broad-based disc bulge is accompanied by facet hypertrophy contributing to spinal canal stenosis which is greatest at L4-5. Disc degenerative changes with facet hypertrophy and endplate osteophyte formation also contributes to bilateral neural foraminal stenosis at L4-5 and L5-S1. Impression dictated by: Madhav Madera M.D. 03/04/2025 12:12 PM Dictation Location: [place] [address] Electronically authenticated by: [id number] Y Date: 03/04/2025 12:12
[2025-03-04] MEDS: IBUPROFEN 600 MG TABLET PO (11:49)
[2025-03-04] MEDS: METHOCARBAMOL 500 MG TABLET PO (11:49)
[2025-03-04] MEDS: HYDROCODONE/ACET 5-325 MG TABLET 1 TAB PO (11:49)
--- NOTE | 2025-03-04 13:12 | ED_ITS ---
HPI HPI - General Adult General Chief complaint: Back Pain/Injury Stated complaint: FALL 03/04/2025; LOWER BACK PAIN, HEADACHE Time Seen by Provider: 03/04/25 11:25 Source: patient Mode of arrival: walk-in Limitations: no limitations History of Present Illness HPI narrative: Patient is a 54-year-old female presenting to the emergency department for evaluation of lower back pain. Patient states that yesterday she was walking down the steps, when she tripped, fell, and landed on her lower back. She had immediate pain then, but waited until today to be evaluated by physician. She states she feels like she broke her tailbone . Patient is experiencing pain in the lower part of her back, which radiates down her bilateral legs. She denies any weakness in the lower extremities. She is still able to ambulate without difficulty. She denies numbness/tingling in the extremities or perineum. She denies loss of bladder/bowel function. She denies history of previous spine surgeries. She denies any other injuries. She did not hit her head or lose consciousness. Related Data Previous Rx's ?Medication ?Instructions ?Recorded oxycodone 5 mg tablet 5 mg PO Q8H PRN pain #8 tabs 03/04/25 Allergies Allergy/AdvReac Type Severity Reaction Status Date / Time codeine Allergy Severe blacked out Verified 03/02/25 18:38 Opioid HPI Opioid Management Most Recent Opioid Data: Last Pain Scale 7 03/02/25, 19:39 Last MAR Pain Assessment 03/02/25, 19:39 Review of Systems ROS Status of ROS 10 or more systems reviewed and unremark able except as noted in history and below PFSH PFSH Social History Little interest or pleasure in doing things: not at all Feeling down, depressed, or hopeless: not at all Exam Narrative Exam Narrative: CONSTITUTIONAL: Appears mildly uncomfortable, answering questions and following commands appropriately. SKIN: Warm and dry. There are no areas of ecchymosis on the lower back.. EYES: Sclerae white. EARS, NOSE, THROAT: Moist oral mucosa. RESPIRATORY: Clear to auscultation bilaterally, no wheezes, crackles, or stridor, no use of accessory muscles CARDIOVASCULAR: Normal rate and regular rhythm. 2+ DP pulses bilaterally. There is no S3, S4, murmur, rub. GASTROINTESTINAL: Abdomen is nondistended. MUSCULOSKELETAL: There is midline L-spine tenderness without step-offs or deformities. There is tenderness to palpation about the paraspinal muscles of the lower back. She has full range of motion of the bilateral lower extremities and is able to ambulate with a steady gait. NEUROLOGIC: Patient is awake and alert. Equal strength and sensation to light touch in the bilateral lower extremities. Constitutional Vital Signs, click to edit/add: Last Vital Signs Temp 98 F 03/04/25 11:27 Pulse 78 03/04/25 15:01 Resp 16 03/04/25 15:01 BP 135/77 03/04/25 15:01 Pulse Ox 99 03/04/25 15:01 O2 Del Method Room Air 03/04/25 15:01 Course Vital Signs Vital signs: Vital Signs Temperature 98 F 03/04/25 11:27 Pulse Rate 87 03/04/25 11:27 Respiratory Rate 18 03/04/25 11:27 Blood Pressure 153/84 H 03/04/25 11:27 Pulse Oximetry 95 03/04/25 11:27 Oxygen Delivery Method Room Air 03/04/25 11:27 Temperature 98 F 03/04/25 11:27 Pulse Rate 78 03/04/25 15:01 Respiratory Rate 16 03/04/25 15:01 Blood Pressure 135/77 03/04/25 15:01 Pulse Oximetry 99 03/04/25 15:01 Oxygen Delivery Method Room Air 03/04/25 15:01 Medical Decision Making [facility] Narrative Medical decision making narrative: Patient is a 54-year-old female presenting to the emergency department for complaints of low back pain after mechanical fall from a standing height 24 hours ago. Vital signs on arrival are significant for mild hypertension, otherwise were within normal limits. She is afebrile and hemodynamically stable. Examination as noted above, however was notable for midline L-spine tenderness and reproducible tenderness to palpation throughout the paraspinal muscles of the lower back. She has good strength, sensation, distal perfusion in the lower extremities - neurovascularly intact. Differential diagnosis includes lumbar vertebral fracture, sacral fracture, lumbar radiculopathy, musculoskeletal pain, or bony contusion. She has no red flag signs for cauda equina syndrome. CT of the lumbar spine without contrast was ordered. She was given oral Nis[place], Robaxin, and Motrin for pain. CT lumbar spine demonstrated no acute bony abnormality. Facet hypertrophy contributing to 3 mm of anterolisthesis of L4 upon L5. Broad-based disc bulge is accompanied by facet hypertrophy contributing to spinal canal stenosis which is greatest at L4-5. Disc degenerative changes with facet hypertrophy and endplate osteophyte formation also contributes to bilateral neural foraminal stenosis at L4-5 and L5-S1. On review relation, patient states he feels significantly improved. I do believe the patient is stable for discharge at this time. Patient's presentation is most likely consistent with lumbar radiculopathy, musculoskeletal pain/contusion. They were instructed to follow up with her PCP in the next 3 to 5 days for further care. Return precautions were given including any new or worsening symptoms. They were given a prescription for [place] 5 mg x 8 tablets for acute pain. Patient understands and agrees to the plan. FINAL IMPRESSION: #Acute low back pain s/p mechanical fall #Acute lumbar radiculopathy DISPOSITION: Discharged home CONDITION: Good Imaging Data CT lumbar spine w/o contrast: Attestation: I personally reviewed and interpreted this imaging study as follows: Discharge Plan Discharge Chief Complaint: Back Pain/Injury Clinical Impression: Strain of lumbar region Qualifiers: Encounter type: initial encounter Qualified Code(s): S39.012A - Strain of muscle, fascia and tendon of lower back, initial encounter Patient Disposition: Home, Self-Care Time of Disposition Decision: 14:39 Condition: Good Mode of Transportation: Private Vehicle Prescriptions / Home Meds: New oxycodone 5 mg tablet 5 mg PO Q8H PRN (Reason: pain) Qty: 8 0RF Print Language: Sinhala Instructions: Back Pain (ED) Referrals: Physician,Non-Staff, MD [Primary Care Provider] - 1 week Discharge Date/Time: 03/04/25 15:01
[2025-03-04 15:01] VITALS: BP 135/77; PULSE 78; O2SAT 99
== END 2025-03-04 15:01 | disposition home or self-care (01) ==
PROVIDERS: Emergency Provider Student in an Organized Health Care Education/Training Program
DX: S39.012A Strain of muscle, fascia and tendon of lower back, initial encounter (principal); W10.8XXA Fall (on) (from) other stairs and steps, initial encounter; M48.061 Spinal stenosis, lumbar region without neurogenic claudication; M54.16 Radiculopathy, lumbar region
CPT/HCPCS: 72131; 99284